=== PATIENT | male | born 1950 | race Caucasian/White ===

== ENCOUNTER 2019-12-27 15:27 | Inpatient (IN) | payer BC, MEDICARE ==
[~2019-12-27] VITALS: Ht 167.6 cm; Wt 83.9 kg
[~2019-12-27 15:27] MED LIST: AUGMENTIN 875-1 EACH PO; DICYCLOMINE HCL10 MG; ONDANSETRO4 MG/UDTAB SL; PAROXETINE HCL20 MG PO; PROMETHAZINE HC25 M1 PO; PROTONIX20 MG PO; TYLENOL # 31 EA PO
[2019-12-27] MEDS ORDERED: PANTOPRAZOLE 40 MG 10ML VIAL IV STA (16:00)
[2019-12-27] MEDS ORDERED: SODIUM CHLORIDE 0.9% 1000ML 1,000 ML IV STA (16:00)
[2019-12-27] MEDS ORDERED: DIATRIZOATE MEGL/DIATRIZOA SOD 30 ML BTL PO ONE (16:15)
[2019-12-27 16:37] LABS: BASOPHILS % 0.2 % (0.0-1.0); EOSINOPHILS # (AUTO) 0.1 (0.0-0.4); EOSINOPHILS % 0.7 % (0.0-6.0); HEMATOCRIT 46.5 % (38.2-49.6); HEMOGLOBIN 16.4 g/dL (14.0-18.0); LYMPHOCYTES # (AUTO) 0.8 (1.0-3.2); LYMPHOCYTES % 5.6 % (18.0-39.1); MEAN CORPUSCULAR HEMOGLOBIN 31.6 pg (28-32); MEAN CORPUSCULAR HGB CONC 35.3 g/dL (31-35); MEAN CORPUSCULAR VOLUME 89.6 fL (81-99); MONOCYTES # (AUTO) 1.2 (0.2-0.8); MONOCYTES % 8.6 % (4.4-11.3); NEUTROPHILS # (AUTO) 11.9 (2.1-6.9); NEUTROPHILS % 84.3 % (38.7-80.0); PLATELET COUNT 401 x10e3/uL (140-360); RED BLOOD COUNT 5.19 x10e6/uL (4.3-5.7); RED CELL DISTRIBUTION WIDTH 12.8 % (11.7-14.4)
[2019-12-27 16:39] LABS: BILIRUBIN,URINE NEGATIVE (NEGATIVE); CLARITY,URINE SL CLOUDY (CLEAR); COLOR,URINE YELLOW (YELLOW); KETONES,URINE NEGATIVE (NEGATIVE); LEUKOCYTE ESTERASE ,URINE NEGATIVE (NEGATIVE); NITRITE,URINE NEGATIVE (NEGATIVE); PROTEIN,URINE DIPSTICK NEGATIVE (NEGATIVE); URINE UROBILINOGEN 0.2 mg/dL (0.2 - 1)
[2019-12-27 16:46] LABS: BACTERIA,URINE FEW /HPF; EPITHELIAL CELLS,URINE FEW /LPF
[2019-12-27 16:51] LABS: ALANINE AMINOTRANSFERASE 49 IU/L (0-55); ALBUMIN 3.6 g/dL (3.5-5.0); ALBUMIN/GLOBULIN RATIO 1.2 (0.8-2.0); ALKALINE PHOSPHATASE 82 IU/L (40-150); ANION GAP 14.3 mmol/L (8-16); BLOOD UREA NITROGEN 15 mg/dL (7-26); BUN/CREATININE RATIO 15 (6-25); CALCIUM 9.3 mg/dL (8.4-10.2); CARBON DIOXIDE 26 mmol/L (22-29); CHLORIDE 102 mmol/L (98-107); CREATININE, SERUM 0.99 mg/dL (0.72-1.25); EST GLOMERULAR FILTRATION RATE > 60 ML/MIN (60-); GLUCOSE 107 mg/dL (74-118); LIPASE 19 U/L (8-78); POTASSIUM 3.3 mmol/L (3.5-5.1); SODIUM 139 mmol/L (136-145)
[2019-12-27] MEDS ORDERED: ONDANSETRON HCL INJ 2MG/ML 2ML 2 MG/ML VIAL IV STA (16:55)
[2019-12-27] MEDS ORDERED: MORPHINE SULFATE INJ 4 MG/ML INJ 1ML IV ONE (17:00)
--- NOTE | 2019-12-27 17:45 | NUR ---
Patient placed in room, tele applied. 12 lead ekg performed, 1 liter NS bolus given, protonix, zofran and morphine IV. Patient had 1 episode of green emesis.
[2019-12-27] MEDS ORDERED: ROCURONIUM BROMIDE 10 MG/ML 5ML VIAL ONE (17:59)
[2019-12-27] MEDS ORDERED: LIDOCAINE HCL 2% JELLY 5 ML TUBE ONE (17:59)
[2019-12-27] MEDS ORDERED: PROPOFOL IV EMULSION 10 MG/ML 20 ML VIAL ONE (17:59)
[2019-12-27] MEDS ORDERED: ESMOLOL HCL 100MG/10ML 10 MG/ML VIAL ONE (17:59)
[2019-12-27] MEDS ORDERED: LIDOCAINE HCL 2% LOCAL INJ 5 ML SDV VIAL INJ ONE (17:59)
[2019-12-27] MEDS ORDERED: DEXAMETHASONE SOD PHOS INJ 4 MG/ML VIAL ONE (17:59)
[2019-12-27] MEDS ORDERED: ONDANSETRON HCL INJ 2MG/ML 2ML 2 MG/ML VIAL ONE (17:59)
--- NOTE | 2019-12-27 18:36 | NUR ---
Patient recieved CT scan.
[2019-12-27 18:58] LABS: INR 0.97; PROTHROMBIN TIME 13.5 seconds (11.9-14.5)
--- NOTE | 2019-12-27 18:58 | Diagnostic Imaging Report ---
EXAM: CT Abdomen and Pelvis WITH contrast INDICATION: ^abd pain ^20191227 ^1814 COMPARISON: None available. TECHNIQUE: Abdomen and pelvis were scanned utilizing a multidetector helical scanner from the lung base to the pubic symphysis after administration of IV contrast. Coronal and sagittal reformations were obtained. Dose modulation, iterative reconstruction, and/or weight based adjustment of the mA/kV was utilized to reduce the radiation dose to as low as reasonably achievable. Routine protocol was performed. Scan was performed when during portal venous phase. IV CONTRAST: 100 mL of Isovue-370 ORAL CONTRAST: Gastroview COMPLICATIONS: None RADIATION DOSE: Total DLP: 420.75 mGy*cm Estimated effective dose: (DLP x 0.015 x size factor) mSv CTDIvol has been reviewed. It is below the limits set by the Radiation Protocol Committee (RPC). FINDINGS: LINES and TUBES: None. LOWER THORAX: Bibasilar atelectasis/scarring. HEPATOBILIARY: Few scattered subcentimeter hypodensities are too small to characterize. No hepatic mass. No biliary ductal dilation. GALLBLADDER: Surgically absent. SPLEEN: No splenomegaly. PANCREAS: No focal masses or ductal dilatation. ADRENALS: No adrenal nodules KIDNEYS/URETERS: Kidneys enhance symmetrically. No hydronephrosis. No renal mass. Left renal inferior pole exophytic cyst. Multiple right renal calculi, the largest in the inferior pole measuring 0.6 cm. GI TRACT: Focal rectal wall thickening (series 2, image 79). Colonic diverticulosis without evidence of diverticulitis. Dilated small bowel loops throughout the abdomen with air-fluid levels. The terminal ileum is collapsed, demonstrating enlargement and hyperenhancement (series 2, image 36). Appendix is normal. Large hiatal hernia. PELVIC ORGANS/BLADDER: Unremarkable. LYMPH NODES: Enlarged right lower quadrant ileocolic lymph nodes measure 2.2 cm and 1.1 cm (series 2, image 34). Otherwise, no lymphadenopathy. VESSELS: Unremarkable. PERITONEUM / RETROPERITONEUM: No free air. Small amount of free fluid in right paracolic cutter. BONES: Degenerative changes of spine, most notable at L4-L5. SOFT TISSUES: Unremarkable. IMPRESSION: 1. Small bowel obstruction with transition point at terminal ileum. The enlarged terminal ileum is collapsed, demonstrating hyperenhancement. This could be related to infectious/inflammatory terminal ileitis. Underlying mass cannot be excluded. There are also adjacent enlarged lymph nodes as described above. 2. Colonic diverticulosis without evidence of diverticulitis. 3. Focal low rectal wall thickening, could be due to underdistention. Underlying lesion cannot be entirely excluded and correlation with colonoscopy is recommended. 4. Right renal subcentimeter nonobstructive calculi. Signed by: Dr. Ramone Olguin MD on 12/27/2019 6:55 PM
[2019-12-27 18:59] LABS: PARTIAL THROMBOPLASTIN TIME 30.3 seconds (23.8-35.5)
[2019-12-27] MEDS ORDERED: ONDANSETRON HCL INJ 2MG/ML 2ML 2 MG/ML VIAL IV NR (19:01)
[2019-12-27 19:11] LABS: CREATINE KINASE MB 4.5 ng/mL (0-5.0)
[2019-12-27] MEDS ORDERED: PROMETHAZINE HCL (IM) 25 MG/ML VIAL IV PRN (19:15)
[2019-12-27] MEDS ORDERED: BENZOCAINE/TETRACAINE/BUTAMBEN AERO SPRAY 56 GM CAN TOP ONE (19:15)
--- OUTSIDE RECORDS SUMMARY | 2019-12-27 19:31 | XMS REPORT ---
Author Author [facility] Address Unknown Phone Unavailable Care Team Providers Care Adult School Counselor Name Role Phone Edson IRVING Unavailable Unavailable Problems This patient has no known problems. Allergies, Adverse Reactions, Alerts This patient has no known allergies or adverse reactions. Medications This patient has no known medications. Results Test Description Test Time Test Comments Text Results Atomic Results Result Comments CT ABDOMEN/PELVIS W 2019-12-27 18:43:00 [place] [address] Patient Name: LAURA DUFFY MR #: [id number] : 1950 Age/Sex: 69/M Req #: [id number] Adm Physician: Ordered by: TIFFANY MENDEZ NP Report #: [id number] Location: ER Room/Bed: Procedure: [id number] CT/CT ABDOMEN/PELVIS W Exam Date: 12/27/19 Exam Time: 1814 REPORT STATUS: Signed EXAM: CT Abdomen and Pelvis WITH contrast INDICATION: abd pain [id number] COMPARISON: None available. TECHNIQUE: Abdomen and pelvis were scanned utilizing a multidetector helical scanner from the lung base to the pubic symphysis after administration of IV contrast. Coronal and sagittal reformations were obtained. Dose modulation, iterative reconstruction, and/or weight based adjustment of the mA/kV was utilized to reduce the radiation dose to as low as reasonably achievable. Routine protocol was performed. Scan was performed when during portal venous phase. IV CONTRAST: 100 mL of Isovue-370 ORAL CONTRAST: Gastroview COMPLICATIONS: None RADIATION DOSE: Total DLP: 420.75 mGy*cm Estimated effective dose: (DLP x 0.015 x size factor) mSv CTDIvol has been reviewed. It is below the limits set by the Radiation Protocol Committee (RPC). FINDINGS: LINES and TUBES: None. LOWER THORAX: Bibasilar atelectasis/scarring. HEPATOBILIARY: Few scattered subcentimeter hypodensities are too small to characterize. No hepatic mass. No biliary ductal dilation. GALLBLADDER: Surgically absent. SPLEEN: No splenomegaly. PANCREAS: No focal masses or ductal dilatation. ADRENALS: No adrenal nodules KIDNEYS/URETERS: Kidneys enhance symmetrically. No hydronephrosis. No renal mass. Left renal inferior pole exophytic cyst. Multiple right renal calculi, the largest in the inferior pole measuring 0.6 cm. GI TRACT: Focal rectal wall thickening (series 2, image 79). Colonic diverticulosis without evidence of d iverticulitis. Dilated small bowel loops throughout the abdomen with air- fluid levels. The terminal ileum is collapsed, demonstrating enlargement and hyperenhancement (series 2, image 36). Appendix is normal. Large hiatal hernia. PELVIC ORGANS/BLADDER: Unremarkable. LYMPH NODES: Enlarged right lower quadrant ileocolic lymph nodes measure 2.2 cm and 1.1 cm (series 2, image 34). Otherwise, no lymphadenopathy. VESSELS: Unremarkable. PERITONEUM / RETROPERITONEUM: No free air. Small amount of free fluid in right paracolic cutter. BONES: Degenerative changes of spine, most notable at L4- L5. SOFT TISSUES: Unremarkable. IMPRESSION: 1. Small bowel obstruction with transition point at terminal ileum. The enlarged terminal ileum is collapsed, demonstrating hyperenhancement. This could be related to infectious/inflammatory terminal ileitis. Underlying mass cannot be excluded. There are also adjacent enlarged lymph nodes as described above. 2. Colonic diverticulosis without evidence of diverticulitis. 3. Focal low rectal wall thickening, could be due to underdistention. Underlying lesion cannot be entirely excluded and correlation with colonoscopy is recommended. 4. Right renal subcentimeter nonobstructive calculi. Signed by: Dr. Ramone Yusuf MD on 12/27/2019 6:55 PM Dictated By: RAMONE YUSUF MD Electro nically Signed By: RAMONE YUSUF MD on 12/27/191854 Transcribed By: COLTEN on 12/27/191854 COPY TO: TIFFANY MENDEZ NP
[2019-12-27] MEDS ORDERED: PROMETHAZINE HCL (IM) 25 MG/ML VIAL IM PRN (19:45)
[2019-12-27] MEDS: SODIUM CHLORIDE 0.9% 250ML IRRIG IR SCH (19:45)
[2019-12-27] MEDS: PIPER-TAZ 3.375 GM / NS 50ML IV SCH (19:55)
[2019-12-27] MEDS: D5NS/KCL 20MEQ 1,000 ML IV SCH (21:54)
[2019-12-27] MEDS ORDERED: SODIUM CHLORIDE 0.9% 50ML 50 ML ONE (22:22)
[2019-12-27] MEDS ORDERED: IOPAMIDOL 370 MG/ML 200 ML INFUS..BTL INJ ONE (22:22)
--- NOTE | 2019-12-28 02:37 | History and Physical ---
CHIEF COMPLAINT: The patient is a 69-year-old gentleman, who comes in with abdominal pain. HISTORY OF PRESENTING ILLNESS: This is Mr. Fadi meneses, who presented to the clinic about 2 days ago with abdominal pain, nonspecific. The patient was asked to take a PPI and to follow up with me in about a week's time. The patient symptomatically got worse. The patient's abdominal pain got worse. The patient came to the ED, was found to have small bowel obstruction and ileitis and admitted for the same. PAST MEDICAL HISTORY: History of arthritis, history of reflux esophagitis, history of depression and history of IBS. MEDICATIONS: He takes at home are dicyclomine 10 mg pantoprazole 40 mg daily, paroxetine 20 mg daily, promethazine was also noted. The patient was getting Augmentin 875 mg twice a day. PAST SURGICAL HISTORY: History of basal cell carcinoma removed from the neck and forehead, tonsillectomy, and lithotripsy for kidney stones. The patient also has history of kidney stones. FAMILY HISTORY: Positive for mother with breast cancer. Otherwise noncontributory. REVIEW OF SYSTEMS: Negative for chest pain. Positive for some shortness of breath. Positive for nausea. No vomiting. No diarrhea. No constipation. Positive abdominal pain which is diffuse. No diplopia. No blurry vision. No headaches. ALLERGIES: NO KNOWN DRUG ALLERGIES. SOCIAL HISTORY: No EtOH. No IV drug abuse. No history of smoking. Former smoker. PHYSICAL EXAMINATION: VITAL SIGNS: Temperature is 96.4, pulse of 83, respirations of 18, blood pressure is 142/97, and pulse oximetry of 98%. HEENT: Normocephalic and atraumatic. The patient currently has an NG tube which is placed stents, a little diaphoretic firmness. CVS: S1 and S2 normal. Regular rate and rhythm. ABDOMEN: Distended. Bowel sounds are sluggish. EXTREMITIES: No clubbing, no cyanosis, no edema. LABORATORY VALUES: White count is 14,000, hemoglobin of 16.4, hematocrit 46.5, and platelet count of 401. Chemistry shows sodium 139, potassium 3.3, BUN 15, and creatinine 0.9, total bilirubin of 1.6, AST was 37. Coags were normal. IMAGING STUDIES: CT of the abdomen and pelvis small bowel obstruction with transition point to the terminal ileum. Colonic diverticulosis, focal rectal wall thickening and right renal subcentimeter nonobstructing calculi. ASSESSMENT: Mr. Fadi Meneses with. 1. Ileitis. 2. Small bowel obstruction. 3. Leukocytosis. 4. History of depression. PLAN: The patient has an NG tube. A consult with has been done. The patient has been started on Zosyn IV q.6 hours. Monitor his lytes. Monitor his kidney function and continue monitoring his LFTs and bilirubin. Further recommendation per clinical course. We discussed this with the family. We will continue and keep him n.p.o. at this time and follow up with labs in the morning. Further recommendation per clinical course. MD PARISH Chin/MODL /[id number]
[2019-12-28 03:19] LABS: CREATINE KINASE MB 3.7 ng/mL (0-5.0)
[2019-12-28 07:11] LABS: BASOPHILS % 0.1 % (0.0-1.0); EOSINOPHILS # (AUTO) 0.1 (0.0-0.4); EOSINOPHILS % 0.4 % (0.0-6.0); HEMATOCRIT 42.8 % (38.2-49.6); HEMOGLOBIN 14.6 g/dL (14.0-18.0); LYMPHOCYTES # (AUTO) 0.8 (1.0-3.2); LYMPHOCYTES % 5.6 % (18.0-39.1); MEAN CORPUSCULAR HEMOGLOBIN 31.4 pg (28-32); MEAN CORPUSCULAR HGB CONC 34.1 g/dL (31-35); MONOCYTES # (AUTO) 1.1 (0.2-0.8); MONOCYTES % 8.3 % (4.4-11.3); NEUTROPHILS # (AUTO) 11.6 (2.1-6.9); NEUTROPHILS % 85.2 % (38.7-80.0); PLATELET COUNT 353 x10e3/uL (140-360); RED BLOOD COUNT 4.65 x10e6/uL (4.3-5.7); RED CELL DISTRIBUTION WIDTH 13.1 % (11.7-14.4)
--- NOTE | 2019-12-28 07:13 | Progress Note ---
DATE: 12/28/2019 SUBJECTIVE: The patient came in with small bowel obstruction. NG tube to suction applied. The patient is feeling better. Decompression of the abdomen noted no complaints. The pain had initiated about 3 o'clock, given morphine, feeling better. No chest pain, no shortness of breath, and no bowel movements. PHYSICAL EXAMINATION: VITAL SIGNS: Temperature is afebrile, pulse of 98, respirations of 20, blood pressure is 121/88, pulse oximetry of 97%. HEENT: Normocephalic. The patient has an NG tube in. CVS: S1 and S2 normal, regular rhythm. LUNGS: Clear to auscultation. ABDOMEN: Slightly distended. Bowel sounds are very sluggish. EXTREMITIES: No clubbing, no cyanosis, no edema. LABORATORY VALUES: Pending. Chemistries pending. Troponins are negative. Lipase is 19. Coags are normal. IMAGING STUDIES: CT shows small bowel obstruction. ASSESSMENT: A 69-year-old gentleman with: 1. Small-bowel obstruction. 2. Leukocytosis. 3. Depression. 4. Ileitis. PLAN: Continue on Zosyn. is on consult. Continue monitoring his abdomen and bilirubin. Lytes to be replaced as needed. IV fluid resuscitation. Further recommendation per clinical course. We will continue to monitor the patient along with . MD PARISH Chin/MODL /[id number]
[2019-12-28 07:37] LABS: ALANINE AMINOTRANSFERASE 47 IU/L (0-55); ALBUMIN 3.2 g/dL (3.5-5.0); ALBUMIN/GLOBULIN RATIO 1.2 (0.8-2.0); ALKALINE PHOSPHATASE 75 IU/L (40-150); ANION GAP 12.7 mmol/L (8-16); BLOOD UREA NITROGEN 11 mg/dL (7-26); BUN/CREATININE RATIO 13 (6-25); CALCIUM 8.6 mg/dL (8.4-10.2); CARBON DIOXIDE 24 mmol/L (22-29); CHLORIDE 107 mmol/L (98-107); CREATININE, SERUM 0.82 mg/dL (0.72-1.25); EST GLOMERULAR FILTRATION RATE > 60 ML/MIN (60-); GLUCOSE 117 mg/dL (74-118); LIPASE 11 U/L (8-78); POTASSIUM 3.7 mmol/L (3.5-5.1); SODIUM 140 mmol/L (136-145)
[2019-12-28] MEDS: SODIUM CHLORIDE 0.9% 250ML IRRIG IR SCH ×7 (07:55→23:05)
[2019-12-28] MEDS: PIPER-TAZ 3.375 GM / NS 50ML IV SCH ×3 (07:55→14:34)
[2019-12-28 08:47] LABS: CREATINE KINASE MB 2.1 ng/mL (0-5.0)
[2019-12-28] MEDS: D5NS/KCL 20MEQ 1,000 ML IV SCH (09:13)
[2019-12-28] MEDS: MORPHINE SULFATE INJ 4 MG/ML INJ 1ML IV PRN ×3 (11:47→21:15)
[2019-12-28] MEDS: ONDANSETRON HCL INJ 2MG/ML 2ML 2 MG/ML VIAL IV PRN ×3 (11:48→21:10)
[2019-12-28] MEDS: SODIUM CHLORIDE 0.9% 1000ML 1,000 ML IV SCH ×2 (12:39→21:04)
[2019-12-28] MEDS: PANTOPRAZOLE 40 MG 10ML VIAL IV SCH (13:25)
[2019-12-28] MEDS: CEFTRIAXONE SOD 1 GM/NS 50 ML 50 ML IV SCH (13:25)
--- NOTE | 2019-12-28 19:30 | NUR ---
PATIENT WAS BROUGHT FROM ER IN A STRETCHER WITH C/O ABD.PAIN.ASSESSMENT DONE.AAOX3.AMBULATORY.NO RESP.DISTRESS .ABD.PAIN VOICED 06/25.IV TO LEFT AC #20 G PATENT.IV FLUID RUNNING.NG TUBE IN PLACE.ORIENTED TO THE UNIT.BED LOCKED AND IN LOWEST POSITION. PHONE AND CALL LIGHT WITHIN REACH.INSTRUCTED TO CALL FOR ASSISTANCE NEEDED.
[2019-12-28 19:31] VITALS: BP 100/57
[2019-12-28 20:10] VITALS: BP 100/57
[2019-12-28 21:00] VITALS: BP 100/57
[2019-12-28] MEDS: PIPER-TAZ 3.375 GM 50 ML IV SCH (21:03)
[2019-12-28] MEDS ORDERED: ACETAMINOPHEN 1000 MG/100 ML IV PRN (21:45)
--- NOTE | 2019-12-28 22:00 | NUR ---
TEMP NOTED 99.8.NOTIFIED TO .RECEIVED NEW ORDERS.
[2019-12-29] VITALS (8 sets, daily range): BP systolic 92–123; BP diastolic 56–83
[2019-12-29] MEDS: ONDANSETRON HCL INJ 2MG/ML 2ML 2 MG/ML VIAL IV PRN ×2 (02:30→06:30)
[2019-12-29] MEDS: MORPHINE SULFATE INJ 4 MG/ML INJ 1ML IV PRN ×4 (02:35→17:22)
[2019-12-29] MEDS: PIPER-TAZ 3.375 GM 50 ML IV SCH ×4 (02:46→21:00)
[2019-12-29] MEDS: SODIUM CHLORIDE 0.9% 250ML IRRIG IR SCH ×6 (03:02→23:15)
[2019-12-29] MEDS: SODIUM CHLORIDE 0.9% 1000ML 1,000 ML IV SCH ×3 (05:25→20:00)
--- NOTE | 2019-12-29 06:00 | NUR ---
PATIENT IS OFF THE UNIT FOR X RAY.
--- NOTE | 2019-12-29 06:10 | NUR ---
PATIENT CAME BACK SAFELY AFTER THE X RAY.
[2019-12-29 06:29] LABS: BASOPHILS % 0.3 % (0.0-1.0); EOSINOPHILS # (AUTO) 0.2 (0.0-0.4); EOSINOPHILS % 1.3 % (0.0-6.0); HEMATOCRIT 42.3 % (38.2-49.6); HEMOGLOBIN 13.9 g/dL (14.0-18.0); LYMPHOCYTES # (AUTO) 1.1 (1.0-3.2); LYMPHOCYTES % 9.4 % (18.0-39.1); MEAN CORPUSCULAR HGB CONC 32.9 g/dL (31-35); MEAN CORPUSCULAR VOLUME 94.4 fL (81-99); MONOCYTES # (AUTO) 1.2 (0.2-0.8); MONOCYTES % 10.5 % (4.4-11.3); NEUTROPHILS # (AUTO) 8.8 (2.1-6.9); NEUTROPHILS % 78.1 % (38.7-80.0); PLATELET COUNT 312 x10e3/uL (140-360); RED BLOOD COUNT 4.48 x10e6/uL (4.3-5.7); RED CELL DISTRIBUTION WIDTH 13.4 % (11.7-14.4)
--- NOTE | 2019-12-29 06:47 | Diagnostic Imaging Report ---
EXAM: Chest x-ray 1 view and Abdomen x-ray 1 View) INDICATION: Small bowel obstruction COMPARISON: Abdominal CT 12/27/2019 FINDINGS: LINES/TUBES: Enteric tube tip courses into and coils within the the large sliding gastric hiatal hernia above the level of the hemidiaphragm. LUNGS/PLEURA: Left basilar haziness. CARDIOMEDIASTINUM: Unremarkable. ABDOMEN: Normal volume of stool in the colon. Persistent dilation of numerous small bowel loops with air-fluid levels. No abnormal abdominal calcifications. No abnormal soft tissue masses. No pneumoperitoneum. Cholecystectomy clips. BONES: No acute osseous abnormality. Mild degenerative changes in the shoulders, spine and pelvis. SOFT TISSUES: No gross abnormalities. IMPRESSION: 1. Enteric tube tip courses into and coils within the the large sliding gastric hiatal hernia above the level of the hemidiaphragm. 2. Left basilar haziness is either could be due to atelectasis and/or pneumonia/aspiration. Signed by: Jerod Garber DO on 12/29/2019 6:45 AM
[2019-12-29 06:51] LABS: ALANINE AMINOTRANSFERASE 29 IU/L (0-55); ALBUMIN/GLOBULIN RATIO 1.2 (0.8-2.0); ALKALINE PHOSPHATASE 69 IU/L (40-150); BLOOD UREA NITROGEN 13 mg/dL (7-26); BUN/CREATININE RATIO 13 (6-25); CALCIUM 8.5 mg/dL (8.4-10.2); CARBON DIOXIDE 25 mmol/L (22-29); CHLORIDE 108 mmol/L (98-107); EST GLOMERULAR FILTRATION RATE > 60 ML/MIN (60-); GLUCOSE 92 mg/dL (74-118); MAGNESIUM 1.6 MG/DL (1.3-2.1); SODIUM 143 mmol/L (136-145)
--- NOTE | 2019-12-29 06:55 | NUR ---
BED SIDE SHIFT REPORT GIVEN TO ONCOMING RN.STABLE CONDITION.
--- NOTE | 2019-12-29 07:00 | NUR ---
RECEIVED PATIENT AWAKE RESTING IN BED NO S/S OF DISTRESS. BED LOW, WHEELS LOCKED, SIDE RAILS X2, CALL LIGHT WITHIN REACH WILL CONTINUE TO MONITOR PATIENT.
[2019-12-29] MEDS: PANTOPRAZOLE 40 MG 10ML VIAL IV SCH (08:58)
[2019-12-29] MEDS: CEFTRIAXONE SOD 1 GM/NS 50 ML 50 ML IV SCH (12:12)
--- NOTE | 2019-12-29 17:17 | Progress Note ---
DATE: 12/29/2019 SUBJECTIVE: A 69-year-old male who comes in with small bowel obstruction and ileitis currently on n.p.o. NG tube to suction, feeling better. Abdominal pain is decreased . OBJECTIVE: VITAL SIGNS: Temperature is 99.5. Afebrile, although the last temperature was 95-100, respirations of 18, blood pressure . HEENT: Normocephalic and atraumatic. Pupils are reactive to light and accommodation. NG tube in place to suction. CVS: S1 and S2. Normal rate and rhythm. ABDOMEN: Distended. Bowel sounds very sluggish. EXTREMITIES: No clubbing, no cyanosis, no edema. LABORATORY VALUES: White count is trended down to 11.3, hemoglobin 13.9, hematocrit of 42.3. Chemistries; sodium is potassium 4.0, BUN 13, creatinine 1.02, bilirubin 123. Troponins were trended to be negative. Liver enzymes are normal. IMAGING STUDIES: Abdominal series shows large sliding hiatal hernia, left basilar haziness . Persistent dilatation of numerous loop with air-fluid level. ASSESSMENT: Small bowel obstruction. PLAN: Continue with NG tube, n.p.o., fluid resuscitation, electrolyte replacement as needed. Further recommendation per clinical course. antibiotics. Vaibhav Bernal MD ASJ/MODL /[id number]
[2019-12-30] VITALS (8 sets, daily range): BP systolic 92–124; BP diastolic 55–77
[2019-12-30] MEDS: PIPER-TAZ 3.375 GM 50 ML IV SCH ×4 (02:52→21:11)
[2019-12-30] MEDS: SODIUM CHLORIDE 0.9% 250ML IRRIG IR SCH ×5 (03:15→21:11)
[2019-12-30] MEDS: SODIUM CHLORIDE 0.9% 1000ML 1,000 ML IV SCH ×3 (04:00→21:11)
--- NOTE | 2019-12-30 07:00 | NUR ---
BEDSIDE SHIFT REPORT RECEIVED FROM THE PET NUTRITION SPECIALIST RN. EDUCATED PT ABOUT FALL PRECAUTIONS. PT VERBALIZED UNDERSTANDING. CALL LIGHT WITH IN EASY REACH. FAMILY MEMBER AT BEDSIDE. SIDE RAILS X2. PT DENIES NEEDS AT THIS TIME.
--- NOTE | 2019-12-30 08:00 | NUR ---
LAC 20 G IV REMOVED DUE TO LEAKING. TIP INTACT. DRESSING APPLIED. PT DENIED FURTHER NEEDS.
[2019-12-30] MEDS: PANTOPRAZOLE 40 MG 10ML VIAL IV SCH (08:46)
--- NOTE | 2019-12-30 08:46 | Diagnostic Imaging Report ---
Exam: Abdominal film Clinical History: Small bowel obstruction Comparison: Acute abdominal series 12/29/2019 DISCUSSION: Chest: The lungs are well-inflated. Patchy opacity in the lung bases left greater than right compatible with subsegmental atelectasis. No pleural effusion or pneumothorax. Large sliding hiatal hernia with enteric tube coiled within, unchanged. Otherwise normal cardiomediastinal contour. No overt pulmonary edema. Abdomen: As before, multiple distended, air-filled loops of small bowel to a maximum of approximately 4 cm in caliber with multiple air-fluid levels on the upright radiograph. There has been interval passage of some orally ingested contrast material into the colon relative to the CT performed 12/27/2019. No niko pneumoperitoneum. Regional skeletal structures are intact. IMPRESSION: No acute cardiopulmonary abnormality. Persistent left basilar airspace disease which may reflect atelectasis or aspiration pneumonitis. Stable position of enteric tube, coiled within a large sliding hiatal hernia. Stable findings suggestive of high-grade small bowel obstruction, though there has been interval passage of enteric contrast material into the colon. No pneumoperitoneum. Signed by: Dr. Olaf Elliott M.D. on 12/30/2019 8:43 AM
[2019-12-30] MEDS: CEFTRIAXONE SOD 1 GM/NS 50 ML 50 ML IV SCH (12:03)
--- NOTE | 2019-12-30 14:50 | NUR ---
CNO AND CHARGE NURSE SPOKE WITH PT AND ABOUT CONCERNS OF MEDICATION. ALL QUESTIONS ANSWERED. NO PAIN AT PRESENT.
[2019-12-30] MEDS: ONDANSETRON HCL INJ 2MG/ML 2ML 2 MG/ML VIAL IV PRN (17:14)
[2019-12-30] MEDS: MORPHINE SULFATE INJ 4 MG/ML INJ 1ML IV PRN (17:14)
--- NOTE | 2019-12-30 19:00 | NUR ---
BEDSIDE SHIFT REPORT GIVEN TO THE PIPE CHIPPER RN. PT DENIED FURTHER NEEDS.
--- NOTE | 2019-12-30 19:06 | NUR ---
Received bedside report from day nurse. Patient resting in bed, no s/s of distress. All safety measures in place. Will continue to monitor.
[2019-12-30] MEDS: BISACODYL 10 MG SUPP PR SCH (21:11)
--- NOTE | 2019-12-30 21:31 | Progress Note ---
DATE: 12/30/2019 SUBJECTIVE: The patient is here for small bowel obstruction, currently on NG tube, wanting water. Had a small bowel movement this morning. No chest pain. No shortness of breath. No nausea, no vomiting. The patient is pain-free at this time. OBJECTIVE: VITAL SIGNS: Temperature 97.9, T-max is 99.1 at 8:13 yesterday, pulse of 96, respirations of 18, blood pressure is 124/77, and pulse oximetry of 94%. HEENT: Normocephalic and atraumatic. Pupils are reactive to light and accommodation. CVS: S1 and S2 normal. Regular rate and rhythm. ABDOMEN: Distended. Bowel sounds are very sluggish. EXTREMITIES: No clubbing, no cyanosis, no edema. LABORATORY VALUES: White count 11,000 yesterday, hemoglobin of 13.9, and hematocrit of 42.3. Chemistries within normal limits. Total bilirubin is 1.3. IMAGING: Imaging studies done this morning shows no change in high-grade small bowel obstruction. PLAN: Continue with NG tube, n.p.o., fluid resuscitation. The patient has been given a suppository. We will continue to monitor the patient. Surgery consult is on board. Further recommendation per clinical course. We will continue the same treatment. The patient has been educated about his condition. MD SOPHIA ChinJ/MODL /[id number]
[2019-12-31] VITALS (7 sets, daily range): BP systolic 104–124; BP diastolic 64–78
[2019-12-31] MEDS: SODIUM CHLORIDE 0.9% 250ML IRRIG IR SCH ×4 (00:03→11:01)
[2019-12-31] MEDS: PIPER-TAZ 3.375 GM 50 ML IV SCH ×4 (02:57→21:20)
[2019-12-31] MEDS: SODIUM CHLORIDE 0.9% 1000ML 1,000 ML IV SCH (05:19)
--- NOTE | 2019-12-31 06:32 | NUR ---
Patient leaving unit via wheelchair for acute abdomen series. In stable condition. Will continue to monitor upon return.
--- NOTE | 2019-12-31 07:00 | NUR ---
BEDSIDE SHIFT REPORT RECEIVED FROM THE EXIT BOOTH AGENT RN. EDUCATED PT ABOUT FALL PRECAUTIONS. PT VERBALIZED UNDERSTANDING. CALL LIGHT WITH IN EASY REACH. BED IS LOW AND LOCKED. SIDE RAILS X2. PT DENIES NEEDS AT THIS TIME.
--- NOTE | 2019-12-31 07:18 | NUR ---
Bedside report given to day nurse. Patient resting in bed, no s/s of distress. All safety measures in place.
[2019-12-31 07:40] LABS: BASOPHILS % 0.5 % (0.0-1.0); EOSINOPHILS # (AUTO) 0.2 (0.0-0.4); EOSINOPHILS % 2.8 % (0.0-6.0); HEMATOCRIT 40.2 % (38.2-49.6); HEMOGLOBIN 13.4 g/dL (14.0-18.0); LYMPHOCYTES # (AUTO) 0.9 (1.0-3.2); LYMPHOCYTES % 11.2 % (18.0-39.1); MEAN CORPUSCULAR HEMOGLOBIN 30.8 pg (28-32); MEAN CORPUSCULAR HGB CONC 33.3 g/dL (31-35); MEAN CORPUSCULAR VOLUME 92.4 fL (81-99); MONOCYTES # (AUTO) 0.7 (0.2-0.8); MONOCYTES % 8.4 % (4.4-11.3); NEUTROPHILS # (AUTO) 6.3 (2.1-6.9); NEUTROPHILS % 76.5 % (38.7-80.0); PLATELET COUNT 302 x10e3/uL (140-360); RED BLOOD COUNT 4.35 x10e6/uL (4.3-5.7); RED CELL DISTRIBUTION WIDTH 12.8 % (11.7-14.4)
--- NOTE | 2019-12-31 07:46 | Diagnostic Imaging Report ---
Exam: Abdominal film with upright chest Clinical History: Small bowel obstruction Comparison: 12/29/2019 DISCUSSION: See impression IMPRESSION: Enteric tube is unchanged in position, with the tip coiled over the lower chest, presumably within a large hiatal hernia previously seen. Unchanged gaseous distention of multiple small bowel loops predominantly within the right mid abdomen, up to 4 cm in caliber reflective of ongoing small bowel obstruction. Enteric contrast is again noted partially opacifying the colon. No pneumoperitoneum. Lungs are well-inflated and with minimal left lower lobe airspace disease, likely atelectasis. Signed by: Dr. Olaf Elliott M.D. on 12/31/2019 7:43 AM
[2019-12-31 08:00] LABS: ANION GAP 16.7 mmol/L (8-16); BLOOD UREA NITROGEN 9 mg/dL (7-26); BUN/CREATININE RATIO 11 (6-25); CALCIUM 8.3 mg/dL (8.4-10.2); CARBON DIOXIDE 19 mmol/L (22-29); CHLORIDE 110 mmol/L (98-107); EST GLOMERULAR FILTRATION RATE > 60 ML/MIN (60-); GLUCOSE 76 mg/dL (74-118); POTASSIUM 3.7 mmol/L (3.5-5.1); SODIUM 142 mmol/L (136-145)
--- NOTE | 2019-12-31 08:00 | NUR ---
PAGED FR. Vinny SAMUEL REGARDING ABDOMEN ACUTE SERIES REPORT. WAITING FOR THE CALL BACK FROM THE
--- NOTE | 2019-12-31 08:00 | NUR ---
PT REFUSED YELLOW SOCKS.
--- NOTE | 2019-12-31 08:10 | NUR ---
CALL BACK RECEIVED FROM THE UPDATED THE ACUTE ABDOMEN SERIES RESULT. NO NEW ORDERS RECEIVED.
[2019-12-31] MEDS: PANTOPRAZOLE 40 MG 10ML VIAL IV SCH (08:44)
[2019-12-31] MEDS: BISACODYL 10 MG SUPP PR SCH (08:44)
--- NOTE | 2019-12-31 11:45 | NUR ---
PT BLOOD SUGAR CHECKED SINCE PT ATE FEW DAYS AGO. [address] PHOENIX AND INFORMED THE SAME. NEW ORDER RECEIVED FOR D5NS 125 ML/HR SCHEDULED.
[2019-12-31] MEDS ORDERED: DEXTROSE 5%/0.9% SOD CHL 1,000 ML IV SCH (12:00)
--- NOTE | 2019-12-31 12:58 | NUR ---
Nutrition Intervention Note RD Recommendation(s) for Physician: Pt may benefit from parenteral nutrition if Pt is to continue to remain NPO greater than 5-7 days Plan of Care: RD following, monitoring for tolerance and adequacy Nutrition reason for involvement: NPO x 4 days as of 12/31/2019 RD Assessment Initial encounter with patient. Diet Hx: pt has no known food allergies. Pt denies any N,V,D. Small BM this morning. Pt has missing teeth and wears partials. The RD did discuss the possibility of PN if pt needed to be NPO greater than 7 days. NPO to continue with NGT to suction. Pt only has IV access at this time. Principal Problems/Diagnoses: SBO PMH: GERD GI: NGT to suction. output noted. Skin: intact Skin Labs: 12/31/2019) biochemical data reviewed Meds: (12/31/2019) NS@125ml/hr Ht:66 in. Wt:178lbs BMI:28.7kg/M2 IBW:142lbs Malnutrition Evaluation (12/04/19) The patient does not meet criteria for a specified degree of malnutrition at this time. Will re-evaluate at follow-up as appropriate. Nutrition Prescription (Diet Order): NPO Estimated Nutritional Needs: 2022 calories/day (25 kcal/kg/ BW) 81g protein/day ( 1g pro/kg/BW) Diet Education Needs Assessment: Diet education not indicated.. Nutrition Care Level:High Nutrition Diagnosis: Altered GI function related to decreased gastric motility as evidenced by SBO Goal: Patient will meet 75-100% of estimated needs by follow up Progress: Not Progressing Interventions: Composition, Rate, Route, IVF, Prescription medications Monitoring/Evaluation: Total energy intake, Total protein intake, Formula/Solution, IVF, Prescription medication, Weight change. Signed: Dieudonne Escalante RD, LD, [facility]
--- NOTE | 2019-12-31 13:30 | NUR ---
REMOVED NG TUBE PER THE ORDER BY DR. Miller SAMUEL. PT TOLERATED WELL. PT DENIED FURTHER NEEDS.
--- NOTE | 2019-12-31 18:45 | NUR ---
PT IS ON CLEAR LIQUID DIET AND TOLERATED WELL. REPORTED THE SAME TO DR. PHOENIX. D/C IV FLUIDS PER DR. PHOENIX.
--- NOTE | 2019-12-31 18:53 | NUR ---
Received bedside report from day nurse. Patient awake and sitting up in bed, no s/s of distress or c/o pain at this time. All safety measures in place. Will continue to monitor.
--- NOTE | 2019-12-31 19:00 | NUR ---
BEDSIDE SHIFT REPORT GIVEN TO THE CARDBOARD CUTTER RN. PT DENIED FURTHER NEEDS.
[2019-12-31] MEDS ORDERED: SODIUM CHLORIDE 0.9% 250ML 250 ML ONE (20:49)
[2020-01-01] VITALS (7 sets, daily range): BP systolic 106–133; BP diastolic 67–89
[2020-01-01] MEDS: PIPER-TAZ 3.375 GM 50 ML IV SCH ×4 (03:04→21:44)
--- NOTE | 2020-01-01 06:11 | NUR ---
Patient leaving unit via wheelchair for acute abdomen series. In stable condition.
--- NOTE | 2020-01-01 06:26 | Progress Note ---
DATE: 01/01/2020 SUBJECTIVE: The patient did well overnight. He had his NG-tube removed, voices no new complaints. He has not had any bowel movements overnight or passing of gas, but he does not feel any further distention. OBJECTIVE: VITAL SIGNS: Temperature 98.2, pulse 76, blood pressure 106/67, sats 98% on room air. GENERAL: No apparent distress, lying in bed. CARDIOVASCULAR: Regular rate and rhythm. LUNGS: Clear to auscultation bilaterally. ABDOMEN: Good bowel sounds. No distention. No peritoneal signs. Nontender. EXTREMITIES: No clubbing or cyanosis. NEUROLOGIC: Nonfocal. ASSESSMENT AND PLAN: 1. Small bowel obstruction. Continue with current conservative therapy. Surgery is following the patient. We will repeat his x-rays this morning. 2. Gastroesophageal reflux disease. Continue with his proton pump inhibitor. 3. Abdominal pain. Continue with pain control as needed. Please see hospital chart for full details. MD VERA Valdez/EMORY /[id number]
--- NOTE | 2020-01-01 06:39 | NUR ---
Patient returned to unit in stable condition. Will continue to monitor.
--- NOTE | 2020-01-01 07:02 | NUR ---
Bedside report given to day nurse. Patient resting in bed, no s/s of distress or c/o pain at this time. All safety measures in place.
--- NOTE | 2020-01-01 08:11 | Diagnostic Imaging Report ---
EXAM: Acute abdominal series with 5 views INDICATION: Small bowel obstruction. COMPARISON: 12/31/2019. FINDINGS: LINES/TUBES: Enteric tube has been removed. LUNGS/PLEURA: Left basilar haziness. CARDIOMEDIASTINUM: Unremarkable. ABDOMEN: No interval change in degree of dilation of numerous small bowel loops with multiple air-fluid levels. No abnormal abdominal calcifications. No abnormal soft tissue masses. No pneumoperitoneum. Cholecystectomy clips. BONES: No acute osseous abnormality. Mild degenerative changes in the shoulders, spine and pelvis. SOFT TISSUES: No gross abnormalities. CARDIOMEDIASTINAL: Normal size. Tortuous distal descending aorta. LUNGS and PLEURA: Bibasilar subsegmental atelectasis. No pneumothorax. IMPRESSION: Interval removal of nasogastric tube. No significant interval change in obstructive bowel gas pattern. Signed by: Dr. Per Bunn M.D. on 01/01/2020 8:09 AM
[2020-01-01] MEDS: PANTOPRAZOLE 40 MG 10ML VIAL IV SCH (10:14)
--- NOTE | 2020-01-01 19:15 | NUR ---
Received bedside report from day nurse. Patient resting in bed, no s/s of distress or c/o pain at this time. All safety measures in place. Will continue to monitor.
[2020-01-02] VITALS (8 sets, daily range): BP systolic 104–134; BP diastolic 62–88
[2020-01-02] MEDS: PIPER-TAZ 3.375 GM 50 ML IV SCH ×4 (02:40→21:50)
--- NOTE | 2020-01-02 07:03 | NUR ---
Bedside report given to day nurse. Patient resting in bed, no s/s of distress or c/o pain at this time. All safety measures in place.
--- NOTE | 2020-01-02 07:05 | NUR ---
Received patient lying in bed with eyes open. Respiration even and unlabored without SOB. Call light in reach.
--- NOTE | 2020-01-02 07:14 | Progress Note ---
DATE: 01/02/2020 SUBJECTIVE: The patient is a 69-year-old gentleman with history of small bowel obstruction. NG tube was taken out. The patient is tolerating a clear liquid diet, currently scheduled for CT of the abdomen and pelvis today. No chest pain. No shortness of breath. Feeling better. No fever noted. OBJECTIVE: VITAL SIGNS: Temperature is 97.2, respirations of 18, pulse of 62, blood pressure is 110/63, pulse oximetry of 98%. HEENT: Normocephalic and atraumatic. Pupils are reactive to light and accommodation. CVS: S1 and S2 are normal. Regular rate and rhythm. ABDOMEN: Nontender, nondistended, soft. Bowel sounds are positive. EXTREMITIES: No clubbing, no cyanosis, no edema. LABORATORY VALUES: None done. From the , all labs were within normal limits. Creatinine was good. ASSESSMENT: A 69-year-old gentleman with: 1. Small bowel obstruction. Continue with clear liquid diet. CT scan in the morning today. 2. Gastroesophageal reflux. 3. Abdominal pain. 4. Hypertension. PLAN: Continue to monitor the patient and further course depending on CT of the abdomen. We will continue with a clear liquid diet as of now. MD PARISH Chin/EMORY /[id number]
[2020-01-02] MEDS ORDERED: DIATRIZOATE MEGL/DIATRIZOA SOD 30 ML BTL PO ONE (07:57)
[2020-01-02] MEDS: PANTOPRAZOLE 40 MG 10ML VIAL IV SCH (09:31)
--- NOTE | 2020-01-02 09:41 | NUR ---
fur dressing supervisor, Tia strated PIV 20g at left FA. No bleeding noted.
--- NOTE | 2020-01-02 10:37 | NUR ---
Patient is transported for CT at this time.
--- NOTE | 2020-01-02 11:09 | NUR ---
Patient is transported back to room from CT.
--- NOTE | 2020-01-02 11:30 | Diagnostic Imaging Report ---
EXAMINATION: CT of the abdomen and pelvis with contrast. TECHNIQUE: Spiral CT images of the abdomen and pelvis were performed from the lung bases to the lesser trochanters after the intravenous administration of 100 cc of Isovue 370. Coronal and sagittal reformatted images were obtained. COMPARISON: 12/27/2019 CLINICAL HISTORY:Small bowel obstruction DISCUSSION: ABDOMEN/PELVIS: LOWER THORAX:Large hiatal hernia unchanged. Trace right pleural effusion. Bibasilar atelectasis. HEPATOBILIARY: Subcentimeter hypoattenuating foci in the left lobe are unchanged and remain too small to further characterize though likely to represent small cysts. No additional focal hepatic lesion. No intra-or extrahepatic biliary ductal dilation. Gallbladder is absent. SPLEEN: No splenomegaly or focal splenic lesion. PANCREAS: No focal masses or ductal dilatation. ADRENALS: No adrenal nodules. KIDNEYS/URETERS: Exophytic cyst projecting from the left kidney unchanged. No additional focal renal lesion. No hydronephrosis. Nonobstructing calculi in the right lower pole collecting system are unchanged. PELVIC ORGANS/BLADDER: The urinary bladder is unremarkable. PERITONEUM/RETROPERITONEUM: Trace right lower quadrant ascites. No pneumoperitoneum. LYMPH NODES: Enlarged right lower quadrant mesenteric lymph nodes to a maximum of 1 cm short axis are unchanged. Enlarged lymph node posterior to the mesenteric root adjacent to the SMA (series 2 image 34), is also unchanged. No retroperitoneal or pelvic sidewall lymphadenopathy. VESSELS: Abdominal aorta, major branch vessels, and iliac arterial systems are patent. Right hepatic artery is replaced to the SMA. Portal vein, splenic vein, and central superior mesenteric vein are patent. GI TRACT: The large bowel is notable for innumerable diverticula along the descending and sigmoid colon without wall thickening or adjacent inflammatory change. There has been no appreciable interval change in the appearance of multiple dilated loops of small bowel to a maximum caliber of 3.5 cm, with a transition point at the terminal ileum with a questionable mass lesion seen on series 2 image 36. BONES AND SOFT TISSUE: Bone island in the right femoral neck. Degenerative changes of the hips. Multilevel degenerative disc changes of the lumbar spine. No focal soft tissue abnormalities. No focal soft tissue abnormalities. IMPRESSION: Persistent findings of small bowel obstruction with a transition point at the terminal ileum. Endoluminal mass lesion is suspected based on persistence of findings and adjacent mesenteric lymphadenopathy. The suspected lesion is in close proximity (approximately 3 cm) to the ileocecal valve. No evidence of perforation. No drainable fluid collection. Additional findings include a large hiatal hernia, sigmoid diverticulosis without findings of diverticulitis, and nonobstructing right renal calculi, all of which are unchanged compared to prior examination. Signed by: Dr. Olaf Elliott M.D. on 01/02/2020 11:28 AM
--- NOTE | 2020-01-02 13:11 | NUR ---
Nutrition Intervention Note RD Recommendation(s) for Physician: -If pts diet does not advance in the next 24 hours, please consider alternate source of nutrition and consult RD, pt has been NPO/clear liquids for the past 6 days. -ADAT to GI soft per MD. Plan of Care: RD following, monitoring for tolerance and adequacy. Pt denied ONS. Nutrition reason for involvement: f/u RD Assessment 01/02: Follow up: Pt was seen resting in bed, clear liquid tray at bedside, NG tube taken out. The pt reported he has been tolerating the clear liquids, no N/V and he had a BM. Pt reported he is supposed to be advanced to a full liquid diet today, pt has been NPO/clear liquids for 6 days now. Spoke with nurse, he is getting a CT of his abdomen today and after that the pt will hopefully be advanced. If diet is not advanced by tmrw, 01/[address] for TPN if appropriate. Pt does have an appetite. Per MD- he will continue to clear liquids for now. Will continue to monitor. Initial encounter with patient. Diet Hx: pt has no known food allergies. Pt denies any N,V,D. Small BM this morning. Pt has missing teeth and wears partials. The RD did discuss the possibility of PN if pt needed to be NPO greater than 7 days. NPO to continue with NGT to suction. Pt only has IV access at this time. Principal Problems/Diagnoses: SBO PMH: GERD GI: Abd: soft LBM: 12/31 Skin: intact Labs: 01/02: no new labs (12/31/2019) biochemical data reviewed Meds: abx, protonix, zofran Ht:66 in. Wt:178lbs BMI:28.7kg/M2 IBW:142lbs Malnutrition Evaluation (01/04/20) The patient does not meet criteria for a specified degree of malnutrition at this time. Will re-evaluate at follow-up as appropriate. Nutrition Prescription (Diet Order): clear liquids Estimated Nutritional Needs: 6066-9239 calories/day (18-22 kcal/kg/CBW) (80 kg) 81-120g protein/day ( 1-1.5g pro/kg/BW) Diet Education Needs Assessment: Diet education not indicated. Nutrition Care Level:High Nutrition Diagnosis: Altered GI function related to decreased gastric motility as evidenced by SBO Goal: Patient will meet 75-100% of estimated needs by follow up Progress: Progressing Interventions: Composition, Rate, Route, IVF, Prescription medications, modified diet (fiber) Monitoring/Evaluation: Total energy intake, Total protein intake, Formula/Solution, IVF, Prescription medication, Weight change, modified diet Signed: Rebecca Gutierrez RD, LD
[2020-01-02] MEDS ORDERED: SODIUM CHLORIDE 0.9% 50ML 50 ML ONE (14:55)
[2020-01-02] MEDS ORDERED: IOPAMIDOL 370 MG/ML 200 ML INFUS..BTL INJ ONE (14:55)
--- NOTE | 2020-01-02 19:20 | NUR ---
Report given to mini shifter. Respiration even and unlabored without SOB. Call light in reach.
--- NOTE | 2020-01-02 21:50 | NUR ---
PATIENT RESTING IN BED AOX4, NO SIGNS OF DISTRESS NOTED. PATIENT HAS SIGNED CONSENT FOR PROCEDURE IN THE MORNING AND IS AWARE OF NPO AFTER MIDNIGHT, PATIENT VOICES NO PAIN AT THIS TIME. IV ANTIBIOTICS ARE RUNNING AT ORDERED RATE. BED IS LOW, SIDE RAILS ARE UP, CALL LIGHT WITHIN REACH, WILL CONTINUE TO MONITOR.
[2020-01-03 00:25] VITALS: BP 111/68
[2020-01-03] MEDS: PIPER-TAZ 3.375 GM 50 ML IV SCH ×4 (03:20→21:00)
[2020-01-03 04:00] VITALS: BP 113/72
[2020-01-03 07:21] VITALS: BP 109/72
[2020-01-03 07:22] VITALS: BP 109/72
--- NOTE | 2020-01-03 07:32 | Progress Note ---
DATE: 01/03/2020 SUBJECTIVE: The patient is a 69-year-old, who came in with small bowel obstruction. The patient had a CT scan done showed a tumor on the CT scan. The patient is scheduled for exploratory laparotomy. CT shows a persistent finding of small bowel obstruction, suspect lesion close approximate to the ileocecal valve. PHYSICAL EXAMINATION: VITAL SIGNS: Temperature is afebrile, pulse of 84, respirations 18, and blood pressure is 130/72. HEENT: No icterus present. CVS: S1 and S2 normal. Regular rate and rhythm. ABDOMEN: Slightly distended. EXTREMITIES: No clubbing, no cyanosis, no edema. Bowel sounds are present. LABORATORY VALUES: None done today. Coags are normal limits for surgery. ASSESSMENT: 1. 69-year-old with small bowel obstruction. 2. Obstructive lesion approximate to the ileocecal valve. 3. Hypertension. 4. Hyperlipidemia. PLAN: Ex-lap today by . Further recommendation on clinical course and also finding on the laparotomy. We will check his labs tomorrow in the morning postoperatively. MD SOPHIA ChinJ/MODL /[id number]
[2020-01-03] MEDS: PANTOPRAZOLE 40 MG 10ML VIAL IV SCH (08:51)
[2020-01-03 11:58] VITALS: BP 139/99
[2020-01-03] MEDS ORDERED: SCOPOLAMINE 1.5 MG PATCH ONE (18:38)
[2020-01-03] MEDS ORDERED: PHENYLEPHRINE HCL 1% 10 MG/ML VIAL ONE (20:03)
[2020-01-03] MEDS ORDERED: HYDROMORPHONE 0.2MG/ML-SOD CHL 30ML PCA SYRINGE IV PRN (21:15)
[2020-01-03] MEDS ORDERED: NALOXONE HCL INJ 0.4 MG/ML AMP IV PRN (21:15)
[2020-01-03] MEDS ORDERED: ALBUMIN 25% 12.5GM 50ML 50 ML IV ONE (21:22)
[2020-01-03] MEDS ORDERED: ALBUMIN 5% 250ML 500 ML IV PRN (21:30)
[2020-01-03] MEDS ORDERED: ALBUMIN 25% 12.5GM 50ML 50 ML IV NR (22:00)
[2020-01-03] MEDS ORDERED: HYDROMORPHONE 0.2MG/ML-SOD CHL 30ML PCA SYRINGE IV ONE (22:28)
[2020-01-03 23:08] VITALS: BP 102/69
--- NOTE | 2020-01-03 23:10 | NUR ---
RECEIVED FROM PACU. NGT TO Altaf GARCIA CONNECTED TO LWS. LIRIANO TO BSD WITH 60 CC CLEAR YELLOW URINE IN BAG. DRESSING TO ABD C/D/I WITH ABD BINDER IN PLACE. AROUSES EASILY, REINFORCED CAMERA PROTOTYPING ENGINEER PUMP TEACHING.
[2020-01-03] MEDS: DEXTROSE 5%/LACTATED RINGERS 1,000 ML IV SCH (23:57)
[2020-01-03] MEDS: SODIUM CHLORIDE 0.9% 250ML IRRIG IR SCH (23:57)
[2020-01-04] VITALS (28 sets, daily range): BP systolic 96–132; BP diastolic 65–88
[2020-01-04] MEDS: METRONIDAZOLE 500MG/NS 100ML 100 ML IV SCH ×4 (00:08→17:30)
--- NOTE | 2020-01-04 00:30 | NUR ---
140 CC CLEAR YELLOW URINE IN UROMETER
--- NOTE | 2020-01-04 00:49 | Operative Report ---
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 OPERATION PERFORMED: Exploratory laparotomy and right ileocolectomy. ASSISTANTS: 1. Dr. Artur Rodriguez. 2. JANI Tolentino. ANESTHESIA: General. COMPLICATIONS: None. ESTIMATED BLOOD LOSS: 250 mL. DESCRIPTION OF PROCEDURE: With the patient lying in bed in the supine position under good general endotracheal anesthesia, the abdomen was prepped with Betadine solution and draped in the usual manner. A midline incision was made, was carried down through the subcutaneous tissue down to the midline fascia. The midline fascia was opened. The peritoneum was opened and the abdomen was entered. Upon entering the abdominal cavity, exploration revealed multiple adhesions from the patient's previous surgery. The right colon was riding up high at the level of the right upper quadrant and there was a palpable mass right at the ileocecal valve that was present. The transverse colon was stuck to the gallbladder fossa from the patient's previous cholecystectomy. There were also small-bowel adhesions, all of these adhesions were lysed. The liver did not show any palpable metastatic disease. There did appear to be some adenopathy though at around the right colon. We decided to go ahead and proceed with a right hemicolectomy as this was the only way to resect this lesion and with it being, basically at the ileocecal valve, it has to be treated like a colonic lesion. The right colon was then mobilized off the lateral gutter and brought medially. The right ureter was identified and preserved. The duodenum was identified and preserved. The transverse colon that was stuck to the liver was slowly and carefully and brought downward. The lesser sac was then entered and divided with the EnSeal device. At this point, we had the colon well-mobilized and the colon was then divided at the level of the mid transverse colon with an application of JASON-75 stapler. We went proximal to the lesion in the small-bowel, where normal bowel was present and there was no further adenopathy in this area and then this was also divided with another application of the JASON-75 stapler. The mesentery of the colon was then slowly and carefully divided with the EnSeal device with a larger vessels ligated with 0 silk and divided. The specimen was sent for pathological examination. Examination of the specimen once it was totally removed, revealed that the lesion appeared to be emanating from the small bowel just proximal to the ileocecal valve with what appeared to be probably some invasion of the ileocecal valve itself. The anastomosis was then performed with another application of JASON-75 stapler bringing the ileum to the mid transverse colon and the remaining opening was closed with a TA-60 stapler. Gloves and instruments were then changed. The anastomosis was then reinforced with interrupted sutures of 3-0 silk, the mesenteric rent was closed with 2-0 Vicryl, and the abdomen was then copiously irrigated with saline solution. Perfect hemostasis was ascertained. All the excess fluid was aspirated and the abdomen was then closed in layers. The peritoneum was closed with a running suture of #1 Vicryl, the midline fascia was closed with a running suture of #1 Vicryl, and the skin was closed with clips. A dressing was applied. The sponge, lap, and needle count was correct. The patient tolerated the procedure well and returned to the recovery room in stable condition. MD PAZ Granda/EMORY /[id number]
[2020-01-04] MEDS: SODIUM CHLORIDE 0.9% 250ML IRRIG IR SCH ×6 (01:09→21:30)
[2020-01-04] MEDS: PIPER-TAZ 3.375 GM 50 ML IV SCH ×4 (03:26→21:30)
[2020-01-04] MEDS: DEXTROSE 5%/LACTATED RINGERS 1,000 ML IV SCH ×3 (03:35→17:28)
[2020-01-04 05:07] LABS: BASOPHILS # (AUTO) 0.1 (0.0-0.1); BASOPHILS % 0.2 % (0.0-1.0); HEMOGLOBIN 11.4 g/dL (14.0-18.0); LYMPHOCYTES # (AUTO) 0.4 (1.0-3.2); RED CELL DISTRIBUTION WIDTH 13.5 % (11.7-14.4)
[2020-01-04 05:09] LABS: EOSINOPHILS # (AUTO) 0.1 (0.0-0.4); EOSINOPHILS % 0.2 % (0.0-6.0); HEMATOCRIT 33.6 % (38.2-49.6); LYMPHOCYTES % 1.3 % (18.0-39.1); MEAN CORPUSCULAR HEMOGLOBIN 31.1 pg (28-32); MEAN CORPUSCULAR HGB CONC 33.9 g/dL (31-35); MEAN CORPUSCULAR VOLUME 91.8 fL (81-99); MONOCYTES # (AUTO) 1.1 (0.2-0.8); MONOCYTES % 3.5 % (4.4-11.3); NEUTROPHILS % 93.5 % (38.7-80.0); PLATELET COUNT 402 x10e3/uL (140-360); RED BLOOD COUNT 3.66 x10e6/uL (4.3-5.7)
[2020-01-04 05:35] LABS: ALANINE AMINOTRANSFERASE 59 IU/L (0-55); ALBUMIN 3.5 g/dL (3.5-5.0); ALBUMIN/GLOBULIN RATIO 1.7 (0.8-2.0); ALKALINE PHOSPHATASE 49 IU/L (40-150); ANION GAP 16.8 mmol/L (8-16); BLOOD UREA NITROGEN 10 mg/dL (7-26); BUN/CREATININE RATIO 10 (6-25); CARBON DIOXIDE 15 mmol/L (22-29); CHLORIDE 113 mmol/L (98-107); EST GLOMERULAR FILTRATION RATE > 60 ML/MIN (60-); GLUCOSE 193 mg/dL (74-118); POTASSIUM 3.8 mmol/L (3.5-5.1); SODIUM 141 mmol/L (136-145)
[2020-01-04 07:24] LABS: LYMPHOCYTES % (MANUAL) 3 % (19-48); MONOCYTES % (MANUAL) 2 % (3.4-9.0); NEUTROPHILS % (MANUAL) 95 % (40-74)
--- NOTE | 2020-01-04 08:05 | Progress Note ---
DATE: 01/04/2020 SUBJECTIVE: The patient is a 69-year-old gentleman, who came in with small bowel obstruction. The patient had been treated conservatively for about 5 days. The patient did not show any improvement. Repeat CT scan was done by , which showed an ileocecal valve lesion. The patient had a laparotomy yesterday and removal of the lesion and sent for biopsy. Currently, the patient is status post exploratory laparotomy, doing well. Pain is controlled with a ENGINEERING PRODUCTION WORKER pump. At this time, no chest pain, no shortness of breath. NG tube in place and the patient is n.p.o. Urine output is within normal limits and patient's vital signs are normal. Also, the patient had hypertension, which has resolved since. OBJECTIVE: VITAL SIGNS: Temperature is afebrile at 98, pulse of 106, respirations of 17, blood pressure is 109/78, pulse oximetry of 97% on 3 L of oxygen. HEENT: Normocephalic. The patient has an NG tube to suction. CVS: S1 and S2, tachy. ABDOMEN: In a binder. No drainage noted. The patient has no bowel sounds. EXTREMITIES: No clubbing, no cyanosis, no edema. Positive for good pulses in the lower extremities. LABORATORY VALUES: White count is 32,000, hemoglobin of 11.4, hematocrit of 33.6, neutrophil count is 93.5. Chemistry; sodium of 141, potassium 3.8, BUN of 10, creatinine of 1.0. The patient has an indwelling catheter. ASSESSMENT: Mr. Fadi Meneses is a 69-year-old gentleman with: 1. Small bowel obstruction, ileocecal valve lesion, status post exploratory laparotomy. The patient is in the ICU. Continue monitoring the patient. 2. Hypertension, which is currently controlled and the patient is currently hypertensive. Fluid resuscitation in progress. 3. Hyperlipidemia, stay off medications at this time. The patient has SCD for DVT prophylaxis. The patient has Cevallos catheter, which will be discontinued soon. 4. Reactive leukocytosis. Currently, the patient is on Zosyn and metronidazole. Continue on same antibiotic. PLAN: Continue monitoring the patient. CBC, CMP for tomorrow. Continue monitoring his vitals and . Further recommendation per clinical course and according to . MD PARISH Chin/EMORY /[id number]
[2020-01-04] MEDS: PANTOPRAZOLE 40 MG 10ML VIAL IV SCH (09:09)
--- NOTE | 2020-01-04 13:56 | NUR ---
Nutrition Intervention Note RD Recommendation(s) for Physician: - PPN Rec's: 1800 ml TV, 10% D10/500 ml, AA 8.5%/500 ml, standard lytes, MVI, trace, and thiamine. To provide 612 kcal, 90 gm dextrose, and 77 gm protein. - Decrease or discontinue IVF with initiation of PPN. - Please check Mg and Phos with BMP with am labs. Replace low lytes as needed. - If unable to advance diet soon, recommend central access placement for TPN to better meet needs. - When feasible, ADAT to GI soft per MD. Plan of Care: RD following, monitoring for tolerance and adequacy. Pt denied ONS. PPN rec's Nutrition reason for involvement: f/u RD Assessment 01/04: Follow up. Pt NPO currently, pt now NPO/CL x day 8. Pt sleeping at time of visit. Pt s/p ex-lap yesterday with ileocecal valve lesion removal and biopsy yesterday. Pt discussed during rounds, PPN rec's discussed with RN and rec's placed in chart. Pt with peripheral access only currently. Noted Cl elevated, pt on LR at 150 ml/hr. Chart reviewed. Will continue to monitor. 01/02: Follow up: Pt was seen resting in bed, clear liquid tray at bedside, NG tube taken out. The pt reported he has been tolerating the clear liquids, no N/V and he had a BM. Pt reported he is supposed to be advanced to a full liquid diet today, pt has been NPO/clear liquids for 6 days now. Spoke with nurse, he is getting a CT of his abdomen today and after that the pt will hopefully be advanced. If diet is not advanced by tmrw, 01/[address] for TPN if appropriate. Pt does have an appetite. Per MD- he will continue to clear liquids for now. Will continue to monitor. Initial encounter with patient. Diet Hx: pt has no known food allergies. Pt denies any N,V,D. Small BM this morning. Pt has missing teeth and wears partials. The RD did discuss the possibility of PN if pt needed to be NPO greater than 7 days. NPO to continue with NGT to suction. Pt only has IV access at this time. Principal Problems/Diagnoses: SBO PMH: GERD GI: Abd: soft LBM: 01/02 +NGT Skin: intact Labs: 01/04: Na 141, K 3.8, Cl 113, CO2 15, BUN 10, Cr 1, Gluc 193, Ca 8, AST 52, ALT 59 Meds: abx, protonix, zofran, dilaudid, phenergan, IV albumin IVF: D5LR at 150 ml/hr (180 gm dextrose/day) Ht:66 in. Wt:178lbs BMI:28.7kg/M2 IBW:142lbs Malnutrition Evaluation (01/04/20) The patient does not meet criteria for a specified degree of malnutrition at this time. Will re-evaluate at follow-up as appropriate. Nutrition Prescription (Diet Order): NPO Estimated Nutritional Needs: 9340-8635 calories/day (18-22 kcal/kg/CBW) (80 kg) 81-120g protein/day ( 1-1.5g pro/kg/BW) Diet Education Needs Assessment: Diet education not indicated. Nutrition Care Level: High Nutrition Diagnosis: Altered GI function related to decreased gastric motility as evidenced by SBO Goal: Patient will meet 75-100% of estimated needs by follow up Progress: Progressing Interventions: Composition, Rate, Route, IVF, Prescription medications, modified diet (fiber) Monitoring/Evaluation: Total energy intake, Total protein intake, Formula/Solution, IVF, Prescription medication, Weight change, modified diet Signed: Brigitte Giordano RD, LD, [facility]
[2020-01-04 16:45] LABS: BASOPHILS % 0.1 % (0.0-1.0); HEMATOCRIT 32.8 % (38.2-49.6); HEMOGLOBIN 11.5 g/dL (14.0-18.0); LYMPHOCYTES # (AUTO) 0.8 (1.0-3.2); LYMPHOCYTES % 3.2 % (18.0-39.1); MEAN CORPUSCULAR HEMOGLOBIN 31.3 pg (28-32); MEAN CORPUSCULAR HGB CONC 35.1 g/dL (31-35); MEAN CORPUSCULAR VOLUME 89.4 fL (81-99); MONOCYTES # (AUTO) 1.8 (0.2-0.8); MONOCYTES % 7.1 % (4.4-11.3); NEUTROPHILS # (AUTO) 22.3 (2.1-6.9); PLATELET COUNT 418 x10e3/uL (140-360); RED BLOOD COUNT 3.67 x10e6/uL (4.3-5.7); RED CELL DISTRIBUTION WIDTH 13.6 % (11.7-14.4)
[2020-01-04 17:02] LABS: ANION GAP 7.1 mmol/L (8-16); BLOOD UREA NITROGEN 9 mg/dL (7-26); BUN/CREATININE RATIO 12 (6-25); CALCIUM 8.5 mg/dL (8.4-10.2); CARBON DIOXIDE 23 mmol/L (22-29); CHLORIDE 113 mmol/L (98-107); CREATININE, SERUM 0.78 mg/dL (0.72-1.25); EST GLOMERULAR FILTRATION RATE > 60 ML/MIN (60-); GLUCOSE 193 mg/dL (74-118); POTASSIUM 3.1 mmol/L (3.5-5.1); SODIUM 140 mmol/L (136-145)
[2020-01-04] MEDS ORDERED: KETAMINE HCL INJ 50 MG/ML 10 ML VIAL ONE (18:30)
[2020-01-04] MEDS ORDERED: MIDAZOLAM HCL 2 MG/2 ML VIAL ONE (18:30)
[2020-01-04] MEDS ORDERED: FENTANYL CITRATE/PF 100MCG/2 ML INJ ONE (18:30)
--- NOTE | 2020-01-04 19:00 | NUR ---
Report received. Assumed care. Assessment done. See interventions. IV D5LR @ 150ml/hr. INSPECTOR MACHINED PARTS Dilaudid for pain control. O2 per NC @ 3L.
[2020-01-05] VITALS (16 sets, daily range): BP systolic 116–135; BP diastolic 70–90
[2020-01-05] MEDS: METRONIDAZOLE 500MG/NS 100ML 100 ML IV SCH ×4 (00:22→17:30)
[2020-01-05] MEDS: SODIUM CHLORIDE 0.9% 250ML IRRIG IR SCH ×6 (00:23→20:33)
[2020-01-05] MEDS: DEXTROSE 5%/LACTATED RINGERS 1,000 ML IV SCH ×3 (00:23→17:19)
[2020-01-05] MEDS: PIPER-TAZ 3.375 GM 50 ML IV SCH ×4 (03:30→21:12)
[2020-01-05 05:10] LABS: BASOPHILS % 0.1 % (0.0-1.0); EOSINOPHILS # (AUTO) 0.1 (0.0-0.4); EOSINOPHILS % 0.3 % (0.0-6.0); HEMATOCRIT 31.7 % (38.2-49.6); LYMPHOCYTES # (AUTO) 1.3 (1.0-3.2); LYMPHOCYTES % 6.7 % (18.0-39.1); MEAN CORPUSCULAR HEMOGLOBIN 31.4 pg (28-32); MEAN CORPUSCULAR HGB CONC 34.7 g/dL (31-35); MEAN CORPUSCULAR VOLUME 90.6 fL (81-99); MONOCYTES # (AUTO) 1.4 (0.2-0.8); MONOCYTES % 7.5 % (4.4-11.3); PLATELET COUNT 365 x10e3/uL (140-360); RED CELL DISTRIBUTION WIDTH 13.7 % (11.7-14.4)
[2020-01-05 05:27] LABS: ANION GAP 8.9 mmol/L (8-16); BLOOD UREA NITROGEN 7 mg/dL (7-26); BUN/CREATININE RATIO 9 (6-25); CALCIUM 8.4 mg/dL (8.4-10.2); CARBON DIOXIDE 25 mmol/L (22-29); CHLORIDE 112 mmol/L (98-107); CREATININE, SERUM 0.75 mg/dL (0.72-1.25); EST GLOMERULAR FILTRATION RATE > 60 ML/MIN (60-); GLUCOSE 157 mg/dL (74-118); SODIUM 143 mmol/L (136-145)
[2020-01-05 05:32] LABS: POTASSIUM 2.9 mmol/L (3.5-5.1)
--- NOTE | 2020-01-05 06:03 | NUR ---
K+ 2.[address] Bernal. Orders given.
[2020-01-05] MEDS ORDERED: POTASSIUM CHLORIDE 20MEQ/100ML 200 ML IV ONE (06:35)
[2020-01-05 07:17] LABS: ALANINE AMINOTRANSFERASE 51 IU/L (0-55); ALBUMIN 3.1 g/dL (3.5-5.0); ALBUMIN/GLOBULIN RATIO 1.5 (0.8-2.0); ALKALINE PHOSPHATASE 47 IU/L (40-150); ANION GAP 8.9 mmol/L (8-16); BLOOD UREA NITROGEN 7 mg/dL (7-26); BUN/CREATININE RATIO 9 (6-25); CALCIUM 8.5 mg/dL (8.4-10.2); CARBON DIOXIDE 25 mmol/L (22-29); CHLORIDE 112 mmol/L (98-107); CREATININE, SERUM 0.74 mg/dL (0.72-1.25); EST GLOMERULAR FILTRATION RATE > 60 ML/MIN (60-); GLUCOSE 166 mg/dL (74-118); SODIUM 143 mmol/L (136-145)
[2020-01-05 07:19] LABS: POTASSIUM 2.9 mmol/L (3.5-5.1)
[2020-01-05] MEDS: PANTOPRAZOLE 40 MG 10ML VIAL IV SCH (08:51)
--- NOTE | 2020-01-05 10:10 | Progress Note ---
DATE: 01/05/2020 SUBJECTIVE: A 69-year-old gentleman, who came in with small bowel obstruction, was found to have ileocecal lesions, status post laparotomy. The patient is stable. No bowel sounds, no flatus, and no bowel movements. Currently, the patient has an NG tube, slept well through the night, had some pain, is on a RETAIL BUSINESS ANALYST pump. Otherwise, no chest pain or shortness of breath. He is using incentive spirometry. MEDICATIONS: He is on Dilaudid through the RETAIL BUSINESS ANALYST pump and Flagyl. The patient is also on Zofran, pantoprazole, and fluid resuscitation. OBJECTIVE: VITAL SIGNS: T-max is 99, pulse of 105, respirations of 14, blood pressure is 120/77, and pulse oximetry of 92% on 3 L of oxygen. HEENT: Normocephalic and atraumatic. The patient has an NG tube to suction. CVS: S1 and S2 normal. Regular rate and rhythm. LUNGS: Clear to auscultation bilaterally. ABDOMEN: Nontender, nondistended, binder present. EXTREMITIES: No clubbing, no cyanosis, and is on SCD. LABORATORY VALUES: White count is down to 18,000, hemoglobin of 11, hematocrit 31.7, platelet count 365, and neutrophil count is 85. Chemistries show sodium of 143, potassium of 2.9, BUN of 7, and creatinine of 0.75. Pathology, no results yet. ASSESSMENT: Mr. Fadi Meneses is a 69-year-old gentleman with: 1. Small bowel obstruction, status post exploratory laparotomy. The patient is in ICU, we will keep him in ICU. The patient has had no bowel movements or flatus. Continue with NG tube. 2. Hypertension, which is very more in hypertensive mode. 3. Hyperlipidemia. Continue on the same medication. 4. Leukocytosis. The patient is currently on metronidazole. PLAN: Continue the same. Keep the patient in ICU. Further recommendation per clinical course. The patient is being followed by Dr. Leonardo Rodriguez. MD SOPHIA ChinJ/MODL /[id number]
[2020-01-06] VITALS (13 sets, daily range): BP systolic 105–136; BP diastolic 78–95
[2020-01-06] MEDS: METRONIDAZOLE 500MG/NS 100ML 100 ML IV SCH ×4 (00:07→18:24)
[2020-01-06] MEDS: SODIUM CHLORIDE 0.9% 250ML IRRIG IR SCH ×6 (01:10→21:03)
[2020-01-06] MEDS: DEXTROSE 5%/LACTATED RINGERS 1,000 ML IV SCH ×3 (02:59→14:51)
[2020-01-06] MEDS: PIPER-TAZ 3.375 GM 50 ML IV SCH ×4 (03:09→21:30)
--- NOTE | 2020-01-06 06:10 | NUR ---
french cath removed at 5am pt due to void by 1pm no complaints at this time.
[2020-01-06] MEDS ORDERED: BISACODYL 10 MG SUPP PR ONE (08:00)
[2020-01-06] MEDS: PANTOPRAZOLE 40 MG 10ML VIAL IV SCH (08:30)
[2020-01-06 09:25] LABS: BASOPHILS % 0.3 % (0.0-1.0); EOSINOPHILS # (AUTO) 0.3 (0.0-0.4); EOSINOPHILS % 1.9 % (0.0-6.0); HEMATOCRIT 34.1 % (38.2-49.6); HEMOGLOBIN 11.7 g/dL (14.0-18.0); LYMPHOCYTES # (AUTO) 1.1 (1.0-3.2); LYMPHOCYTES % 7.2 % (18.0-39.1); MEAN CORPUSCULAR HEMOGLOBIN 30.8 pg (28-32); MEAN CORPUSCULAR HGB CONC 34.3 g/dL (31-35); MEAN CORPUSCULAR VOLUME 89.7 fL (81-99); MONOCYTES # (AUTO) 0.9 (0.2-0.8); MONOCYTES % 6.4 % (4.4-11.3); NEUTROPHILS # (AUTO) 12.3 (2.1-6.9); NEUTROPHILS % 83.9 % (38.7-80.0); PLATELET COUNT 382 x10e3/uL (140-360); RED CELL DISTRIBUTION WIDTH 13.3 % (11.7-14.4)
[2020-01-06 09:51] LABS: ALANINE AMINOTRANSFERASE 37 IU/L (0-55); ALBUMIN 3.1 g/dL (3.5-5.0); ALBUMIN/GLOBULIN RATIO 1.1 (0.8-2.0); ALKALINE PHOSPHATASE 51 IU/L (40-150); ANION GAP 10.7 mmol/L (8-16); BLOOD UREA NITROGEN < 5 mg/dL (7-26); CALCIUM 8.6 mg/dL (8.4-10.2); CARBON DIOXIDE 28 mmol/L (22-29); CHLORIDE 103 mmol/L (98-107); CREATININE, SERUM 0.65 mg/dL (0.72-1.25); EST GLOMERULAR FILTRATION RATE > 60 ML/MIN (60-); GLUCOSE 141 mg/dL (74-118); SODIUM 139 mmol/L (136-145)
--- NOTE | 2020-01-06 10:15 | Progress Note ---
DATE: 01/06/2020 SUBJECTIVE: The patient is a 69-year-old gentleman with a history of small bowel obstruction status post exploratory laparotomy status post removal of ileocecal lesion or mass. The patient is currently still n.p.o. NG tube in place. No bowel sounds. No bowel movements. No flatus either. The patient has been burping a lot. Abdominal pain is controlled. No chest pain. No shortness of breath. No nausea, vomiting, or diarrhea. MEDICATIONS: The patient is takin. Hydromorphone. 2. Metronidazole. 3. Pantoprazole. 4. Zosyn. 5. Promethazine as needed. OBJECTIVE: VITAL SIGNS: On examination, temperature is 99.2, T-max is the patient's pulse of 94, respirations of 19, blood pressure is 124/78, pulse oximetry of 98%, and O2 at 3 L of oxygen. HEENT: Normocephalic and atraumatic. NG tube in place to suction. CVS: S1 and S2 normal. Regular rate and rhythm. ABDOMEN: Binder. Bowel sounds not present. EXTREMITIES: No clubbing, no cyanosis, no edema. LABORATORY DATA: Pending from today. Yesterday's potassium is 2.9. Path results none available. ASSESSMENT AND PLAN: Mr. Fadi Meneses is a 69-year-old gentleman with: 1. Small-bowel obstruction. Continue with NG tube. The patient can move out of the ICU, can be moved to Medicine with telemetry. 2. Hypertension. Continue monitoring his pressures. 3. Pain control. 4. Leukocytosis. Await CBC today. MD SOPHIA ChinJ/MODL /[id number]
[2020-01-06 10:22] LABS: BUN/CREATININE RATIO 8 (6-25)
[2020-01-06 10:24] LABS: POTASSIUM 2.7 mmol/L (3.5-5.1)
--- NOTE | 2020-01-06 10:35 | NUR ---
notified dr. morgan of K+ 2.7 result. new order received to replace potassium
[2020-01-06] MEDS ORDERED: POTASSIUM CHLORIDE 20MEQ/100ML 200 ML IV ONE ×2 (10:45→18:00)
--- NOTE | 2020-01-06 13:00 | NUR ---
patient has not voided since removing french at 0500. notified (unable to reach surgery MD). okay to straight cath patient prior to transferring patient to floor.,
--- NOTE | 2020-01-06 13:22 | NUR ---
STRAIGHT CATH WITH 700ML URINE OUT.
--- NOTE | 2020-01-06 14:00 | NUR ---
NGT REMOVED AT BEDSIDE. COAL CUTTING MACHINE OPERATOR DISCONTINED WELL PRIOR TO TRANSFER TO FLOOR 109
--- NOTE | 2020-01-06 14:00 | NUR ---
Received report from Bella in ICU, patient is to transfer to room 109.
--- NOTE | 2020-01-06 14:05 | NUR ---
Received patient on wheelchair transferred to bed. Respiration even and unlabored without SOB. Call light in reach. Denies pain at this time.
[2020-01-06] MEDS: HYDROMORPHONE 1MG/1ML INJ IV PRN (16:31)
[2020-01-06] MEDS: ONDANSETRON HCL INJ 2MG/ML 2ML 2 MG/ML VIAL IV PRN (16:31)
--- NOTE | 2020-01-06 17:55 | NUR ---
Verbal order given by Dr. Miller Rodriguez that if patient is not voiding between 11 am to 12 midnight, french catheter should be inserted.
--- NOTE | 2020-01-06 18:18 | NUR ---
Nutrition Intervention Note RD Recommendation(s) for Physician: - When medically appropriate, advance to GI soft diet - Recommend Ensure Clear BID for added nutrition Plan of Care: RD following, monitoring for tolerance and adequacy. Nutrition reason for involvement: follow up RD Assessment 01/06: Follow up. Pt was started on a clear liquid diet today. Pt has been NPO/CL for the past 10 days. Per nursing note, NGT was removed at bedside. Will continue to monitor. 01/04: Follow up. Pt NPO currently, pt now NPO/CL x day 8. Pt sleeping at time of visit. Pt s/p ex-lap yesterday with ileocecal valve lesion removal and biopsy yesterday. Pt discussed during rounds, PPN rec's discussed with RN and rec's placed in chart. Pt with peripheral access only currently. Noted Cl elevated, pt on LR at 150 ml/hr. Chart reviewed. Will continue to monitor. 01/02: Follow up: Pt was seen resting in bed, clear liquid tray at bedside, NG tube taken out. The pt reported he has been tolerating the clear liquids, no N/V and he had a BM. Pt reported he is supposed to be advanced to a full liquid diet today, pt has been NPO/clear liquids for 6 days now. Spoke with nurse, he is getting a CT of his abdomen today and after that the pt will hopefully be advanced. If diet is not advanced by tmrw, 01/[address] for TPN if appropriate. Pt does have an appetite. Per MD- he will continue to clear liquids for now. Will continue to monitor. 12/31: Initial encounter with patient. Diet Hx: pt has no known food allergies. Pt denies any N,V,D. Small BM this morning. Pt has missing teeth and wears partials. The RD did discuss the possibility of PN if pt needed to be NPO greater than 7 days. NPO to continue with NGT to suction. Pt only has IV access at this time. Principal Problems/Diagnoses: SBO PMH: GERD GI: Abd: soft LBM: 01/04 Skin: intact I/O: 3330/2690 Labs: 01/06: Na 139 K 2.7, BUN <5, Creat 0.65, Glu 141 01/04: Na 141, K 3.8, Cl 113, CO2 15, BUN 10, Cr 1, Gluc 193, Ca 8, AST 52, ALT 59 Meds: NaCl, KCl, metronidazole, zofran, KCl Ht:66 in. Wt: 185 lbs (01/05), 178lbs (12/31) BMI:29.9kg/M2 IBW:142lbs Malnutrition Evaluation (01/04/2020) The patient does not meet criteria for a specified degree of malnutrition at this time. Will re-evaluate at follow-up as appropriate. Nutrition Prescription (Diet Order): NPO Estimated Nutritional Needs: 7765-3276 calories/day (18-22 kcal/kg/BW) (80 kg) 81-120g protein/day ( 1-1.5g pro/kg/BW) Diet Education Needs Assessment: Diet education not indicated. Nutrition Care Level: High Nutrition Diagnosis: Altered GI function related to decreased gastric motility as evidenced by SBO Goal: Patient will meet 75-100% of estimated needs by follow up Progress: Not progressing Interventions: modified diet (fiber), Commercial Beverage Monitoring/Evaluation: Total energy intake, Total protein intake, Liquid supplement, Weight change, modified diet Signed: Jenifer Yeboah RD, LD
--- NOTE | 2020-01-06 19:00 | NUR ---
Report given to shift lab technician. Respiration even and unlabored without SOB. Call light in reach.
--- NOTE | 2020-01-06 20:42 | NUR ---
PATIENT VOIDED AT THIS TIME
[2020-01-06] MEDS ORDERED: POTASSIUM CHLORIDE 20MEQ/100ML 200 ML IV NR (21:00)
[2020-01-06] MEDS: BISACODYL 10 MG SUPP PR SCH (21:02)
[2020-01-07] VITALS (9 sets, daily range): BP systolic 108–134; BP diastolic 68–87
[2020-01-07] MEDS: METRONIDAZOLE 500MG/NS 100ML 100 ML IV SCH ×5 (00:08→23:56)
[2020-01-07] MEDS: HYDROMORPHONE 1MG/1ML INJ IV PRN ×2 (00:54→18:45)
[2020-01-07] MEDS: SODIUM CHLORIDE 0.9% 250ML IRRIG IR SCH (01:15)
[2020-01-07] MEDS: PIPER-TAZ 3.375 GM 50 ML IV SCH ×3 (03:15→16:30)
[2020-01-07 05:48] LABS: BASOPHILS % 0.3 % (0.0-1.0); EOSINOPHILS # (AUTO) 0.4 (0.0-0.4); EOSINOPHILS % 4.1 % (0.0-6.0); HEMATOCRIT 32.1 % (38.2-49.6); HEMOGLOBIN 10.8 g/dL (14.0-18.0); LYMPHOCYTES # (AUTO) 0.9 (1.0-3.2); LYMPHOCYTES % 9.3 % (18.0-39.1); MEAN CORPUSCULAR HEMOGLOBIN 30.7 pg (28-32); MEAN CORPUSCULAR HGB CONC 33.6 g/dL (31-35); MEAN CORPUSCULAR VOLUME 91.2 fL (81-99); MONOCYTES # (AUTO) 0.7 (0.2-0.8); NEUTROPHILS # (AUTO) 7.9 (2.1-6.9); NEUTROPHILS % 78.9 % (38.7-80.0); PLATELET COUNT 353 x10e3/uL (140-360); RED BLOOD COUNT 3.52 x10e6/uL (4.3-5.7); RED CELL DISTRIBUTION WIDTH 13.5 % (11.7-14.4)
[2020-01-07 06:07] LABS: BLOOD UREA NITROGEN 5 mg/dL (7-26); BUN/CREATININE RATIO 7 (6-25); CALCIUM 8.4 mg/dL (8.4-10.2); CARBON DIOXIDE 29 mmol/L (22-29); CHLORIDE 106 mmol/L (98-107); EST GLOMERULAR FILTRATION RATE > 60 ML/MIN (60-); GLUCOSE 125 mg/dL (74-118); SODIUM 141 mmol/L (136-145)
[2020-01-07] MEDS ORDERED: POTASSIUM CHLORIDE 20MEQ/100ML 200 ML IV ONE (07:00)
--- NOTE | 2020-01-07 07:03 | NUR ---
Received patient lying on the bed with eyes closed, respiration even and unlabored without SOB. Call light in reach.
--- NOTE | 2020-01-07 07:40 | Progress Note ---
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 No chest pain or shortness of breath. The patient's NG tube was removed yesterday. Started on clear liquid diet. The patient is tolerating it. Bowel sounds are positive. The patient had flatus. No bowel movement yet. No nausea, no vomiting. Continues to walk. No chest pain. OBJECTIVE: VITAL SIGNS: Temperature is afebrile, respirations of 18, pulse of 101, blood pressure is 109/71, pulse oximetry of 98%. HEENT: Normocephalic and atraumatic. NG tube out. CVS: S1 and S2 normal. Regular rate and rhythm. ABDOMEN: In a binder. Bowel sounds are positive. EXTREMITIES: No clubbing, no cyanosis, no edema. LABORATORY VALUES: White count is down to 9.97, hemoglobin of 10.8, hematocrit of 32.1. Chemistries: Potassium is little low at 3, sodium is 141, BUN of 5, and creatinine 0.70. Pathology: No results yet. ASSESSMENT: 1. Mr. Fadi Meneses with small bowel obstruction, status post exploratory laparotomy with resection of the tumor. 2. Hypertension. 3. Leukocytosis. 4. Hypokalemia. PLAN: 1. Advancing diet. 2. Continue with monitoring of blood pressures. 3. Replace potassium. 4. Leukocytosis, better. We will continue monitoring the patient. Further recommendation per clinical course. MD PARISH Chin/MODL /[id number]
[2020-01-07] MEDS: BISACODYL 10 MG SUPP PR SCH (08:33)
[2020-01-07] MEDS: PANTOPRAZOLE 40 MG 10ML VIAL IV SCH (08:33)
[2020-01-07] MEDS: HYDROCODONE/APAP 7.5MG-325MG 1 EA TAB PO PRN ×2 (08:34→23:58)
[2020-01-07] MEDS: DEXTROSE 5%/LACTATED RINGERS 1,000 ML IV SCH (12:09)
--- NOTE | 2020-01-07 19:10 | NUR ---
Report given to night court magistrate. Respiration even and unlabored without SOB. Call light in reach.
[2020-01-08] VITALS (9 sets, daily range): BP systolic 104–157; BP diastolic 65–87
[2020-01-08] MEDS: METRONIDAZOLE 500MG/NS 100ML 100 ML IV SCH ×4 (06:00→23:44)
[2020-01-08 06:15] LABS: ANION GAP 9.9 mmol/L (8-16); BLOOD UREA NITROGEN 6 mg/dL (7-26); BUN/CREATININE RATIO 8 (6-25); CALCIUM 8.7 mg/dL (8.4-10.2); CARBON DIOXIDE 28 mmol/L (22-29); CHLORIDE 106 mmol/L (98-107); CREATININE, SERUM 0.71 mg/dL (0.72-1.25); EST GLOMERULAR FILTRATION RATE > 60 ML/MIN (60-); GLUCOSE 105 mg/dL (74-118); SODIUM 141 mmol/L (136-145)
[2020-01-08 06:17] LABS: POTASSIUM 2.9 mmol/L (3.5-5.1)
--- NOTE | 2020-01-08 06:32 | NUR ---
PAGED DR. RAYMUNDO AT THIS TIME REGARDING POTASSIUM 2.9, AWAITING CALL BACK
--- NOTE | 2020-01-08 06:48 | NUR ---
Received bedside shift report from off going nurse. Patient is in stable condition, no acute distress noted. Call light within reach. Bed in the lowest position.
--- NOTE | 2020-01-08 06:50 | NUR ---
DR. RAYMUNDO DOING ROUNDS NEW ORDER RCV
[2020-01-08] MEDS ORDERED: DEXTROSE 5%/LACTATED RINGERS 1,000 ML IV SCH (07:00)
[2020-01-08] MEDS ORDERED: POTASSIUM CHLORIDE 20MEQ/100ML 200 ML IV ONE (07:30)
[2020-01-08] MEDS ORDERED: POTASSIUM CHLORIDE IV SCH (07:39)
[2020-01-08] MEDS ORDERED: DEXTROSE IV SCH ×2 (07:39→12:00)
[2020-01-08] MEDS ORDERED: LACTATED RINGERS IV SCH ×2 (07:39→12:00)
[2020-01-08] MEDS: PANTOPRAZOLE 40 MG 10ML VIAL IV SCH (07:54)
[2020-01-08] MEDS: PAROXETINE HCL 20 MG TAB PO SCH (09:53)
--- NOTE | 2020-01-08 10:24 | Progress Note ---
DATE: 01/08/2020 SUBJECTIVE: A 69-year-old male, status post exploratory laparotomy with resection. The patient is doing better. NG tube out, tolerating clear liquids. The patient is sleeping, but easily arousable. No chest pains. No shortness of breath and has been advanced to full liquid diet. OBJECTIVE: VITAL SIGNS: Temperature is 98.2, pulse of 94, respirations of 18, blood pressure is 114/83, and pulse oximetry of 98%. HEENT: Normocephalic and atraumatic. Pupils are reactive. CVS: S1 and S2 normal. LUNGS: Clear to auscultation. ABDOMEN: In binder. Bowel sounds are positive. EXTREMITIES: No clubbing, no cyanosis, no edema. LABORATORY VALUES: His white count is trended down. Sodium is 141, potassium of 2.9. ASSESSMENT AND PLAN: 1. Mr. Fadi Meneses with bowel obstruction status post exploratory laparotomy with resection of the tumor. 2. Hypertension. 3. Leukocytosis, resolved. 4. Hypokalemia, replace and added to the IV fluids too. Pathology results are still pending. Further recommendation per clinical course. MD SOPHIA ChinJ/MODL /[id number]
[2020-01-08] MEDS ORDERED: POTASSIUM CHL IV SCH (12:00)
[2020-01-08] MEDS: HYDROCODONE/APAP 7.5MG-325MG 1 EA TAB PO PRN ×3 (13:20→22:38)
--- NOTE | 2020-01-08 19:22 | NUR ---
Bedside shift report given to oncoming nurse. Patient is resting in bed, no acute distress noted. Call light within reach. Bed in the lowest position.
[2020-01-09 00:18] VITALS: BP 108/67
[2020-01-09] MEDS: METRONIDAZOLE 500MG/NS 100ML 100 ML IV SCH (05:18)
[2020-01-09 05:33] VITALS: BP 128/81
[2020-01-09 06:31] LABS: ANION GAP 10.1 mmol/L (8-16); BLOOD UREA NITROGEN 6 mg/dL (7-26); BUN/CREATININE RATIO 9 (6-25); CALCIUM 8.1 mg/dL (8.4-10.2); CARBON DIOXIDE 25 mmol/L (22-29); CHLORIDE 107 mmol/L (98-107); CREATININE, SERUM 0.67 mg/dL (0.72-1.25); EST GLOMERULAR FILTRATION RATE > 60 ML/MIN (60-); GLUCOSE 117 mg/dL (74-118); MAGNESIUM 1.6 MG/DL (1.3-2.1); POTASSIUM 3.1 mmol/L (3.5-5.1); SODIUM 139 mmol/L (136-145)
[2020-01-09] MEDS: HYDROCODONE/APAP 7.5MG-325MG 1 EA TAB PO PRN ×2 (07:23→09:27)
[2020-01-09 08:00] VITALS: BP 130/85
[2020-01-09 08:37] VITALS: BP 130/85
--- NOTE | 2020-01-09 08:43 | Progress Note ---
DATE: 01/09/2020 SUBJECTIVE: The patient is in 109. The patient is status post exploratory laparotomy with resection of bowel. The patient is feeling better. No chest pain. No shortness of breath. Has had runs of diarrhea. No formed stools at this time and has had rectal incontinence at this time. No chest pain. No shortness of breath. Feeling better, otherwise has been able to tolerate a GI soft diet. OBJECTIVE: VITAL SIGNS: Temperature is 96.4, pulse of 89, respirations 16, blood pressure is 128/81 with pulse oximetry of 92%. HEENT: Normocephalic, atraumatic. CVS: S1 and S2 normal. Regular rhythm. ABDOMEN: Nontender, nondistended in a binder and surgical wound site is clean and dry. EXTREMITIES: No clubbing, no cyanosis, no edema. ASSESSMENT: 1. Small-bowel obstruction, status post exploratory laparotomy with resection of tumor and bowel. 2. Hypertension. 3. Leukocytosis, which is resolved. 4. Hypokalemia. Chemistries show a potassium of 3.1, otherwise everything normal. Continue to monitor the patient. Further recommendation as per clinical course. Can be discharged if okay with surgery. MD PARISH Chin/EMORY /[id number]
[2020-01-09] MEDS: PAROXETINE HCL 20 MG TAB PO SCH (09:28)
[2020-01-09] MEDS: PANTOPRAZOLE 40 MG 10ML VIAL IV SCH (09:28)
[2020-01-09 12:25] VITALS: BP 120/75
--- NOTE | 2020-01-09 13:31 | NUR ---
Nutrition Intervention Note RD Recommendation(s) for Physician: - Continue Regular diet as tolerated Plan of Care: RD following, monitoring for tolerance and adequacy. Nutrition reason for involvement: follow up RD Assessment 01/09: Follow up. Pt now on Regular diet as of 01/08, pt reports tolerating well. Pt denies abdominal pain or N/V/C/D. Pt reports good appetite, but only eating 50% of meals and states "I don't want to push it." Pt declined all supplements offered. Pt with no questions or concerns at time of visit. Chart reviewed. Will continue to monitor. 01/06: Follow up. Pt was started on a clear liquid diet today. Pt has been NPO/CL for the past 10 days. Per nursing note, NGT was removed at bedside. Will continue to monitor. 01/04: Follow up. Pt NPO currently, pt now NPO/CL x day 8. Pt sleeping at time of visit. Pt s/p ex-lap yesterday with ileocecal valve lesion removal and biopsy yesterday. Pt discussed during rounds, PPN rec's discussed with RN and rec's placed in chart. Pt with peripheral access only currently. Noted Cl elevated, pt on LR at 150 ml/hr. Chart reviewed. Will continue to monitor. 01/02: Follow up: Pt was seen resting in bed, clear liquid tray at bedside, NG tube taken out. The pt reported he has been tolerating the clear liquids, no N/V and he had a BM. Pt reported he is supposed to be advanced to a full liquid diet today, pt has been NPO/clear liquids for 6 days now. Spoke with nurse, he is getting a CT of his abdomen today and after that the pt will hopefully be advanced. If diet is not advanced by tmrw, 01/[address] for TPN if appropriate. Pt does have an appetite. Per MD- he will continue to clear liquids for now. Will continue to monitor. 12/31: Initial encounter with patient. Diet Hx: pt has no known food allergies. Pt denies any N,V,D. Small BM this morning. Pt has missing teeth and wears partials. The RD did discuss the possibility of PN if pt needed to be NPO greater than 7 days. NPO to continue with NGT to suction. Pt only has IV access at this time. Principal Problems/Diagnoses: SBO PMH: GERD GI: Abd: soft LBM: 01/09 Skin: abdominal incision site Labs: 01/09: Na 139, K 3.1, BUN 6, Cr 0.67, Gluc 117, Mg 1.6 01/06: Na 139 K 2.7, BUN <5, Creat 0.65, Glu 141 01/04: Na 141, K 3.8, Cl 113, CO2 15, BUN 10, Cr 1, Gluc 193, Ca 8, AST 52, ALT 59 Meds: protonix, norco, abx, dilaudid, zofran, IV albumin, phenergan Ht:66 in. Wt: 185 lbs (01/05), 178lbs (12/31) BMI:29.9kg/M2 IBW:142lbs Malnutrition Evaluation (01/04/2020) The patient does not meet criteria for a specified degree of malnutrition at this time. Will re-evaluate at follow-up as appropriate. Nutrition Prescription (Diet Order): Regular Estimated Nutritional Needs: 0588-7627 calories/day (18-22 kcal/kg/BW) (80 kg) 81-120g protein/day ( 1-1.5g pro/kg/BW) Diet Education Needs Assessment: Diet education not indicated, pt on Regular diet Nutrition Care Level: Mod Nutrition Diagnosis: Altered GI function related to decreased gastric motility as evidenced by SBO Goal: Patient will meet 75-100% of estimated needs by follow up Progress: Progressing Interventions: General healthful diet, collaboration with other providers Monitoring/Evaluation: Total energy intake, Total protein intake, Weight change Signed: Brigitte Giordano RD, [place], [facility]
--- NOTE | 2020-01-09 15:08 | NUR ---
Pt discharged home at this time. Pt and family verbalized understanding of all discharge instructions and follow up appts. Pt was given prescription for pain medications. 0 s/s of acute distress noted at time of discharge. Abdominal surgical incision is dry and intact with luis in place and abdominal binder in place.
[2020-01-09 15:56] VITALS: BP 128/87
--- NOTE | 2020-01-28 07:01 | Discharge Summary ---
HOSPITAL COURSE: The patient came in with small bowel obstruction after failed outpatient treatment of gastroenteritis. The patient came in, NG tube was put in and the patient also had systemic inflammatory response. The patient was started on antibiotic. A consult with was done. The patient was kept on NG tube and fluid resuscitation was done. Antibiotics were given. The patient did not progress much, continued with small bowel obstruction. Etiology was very unclear at that time. The patient was on Rocephin and piperacillin-tazobactam. 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 The patient underwent an exploratory laparotomy and right hemicolectomy by Dr. Miller Rodriguez on 01/03. The patient was kept in the ICU after this. Once the patient's vitals were stabilized and the patient's bowels were moving, the patient had clear liquid diet. NG tube was clamped and taken out. The patient was feeling better. Physical Therapy was brought in. The patient is walking. Once everything was stable, the patient was discharged home. Follow up as an outpatient basis for tumor pathology. Further recommendation per clinical course. For further information, look into chart. FINAL DIAGNOSES: 1. Sepsis. 2. Small bowel obstruction. 3. Tumor of the ileocecal valve, status post resection. MD PARISH Chin/MODL /[id number]
== END 2020-01-09 15:08 | disposition home or self-care (01) | DRG 826 ==
LOC: ER 15:27 → ERHOLD 19:17 → MED/SURG 12-28 19:32 → ICU 01-03 21:53 → MED/SURG 01-06 14:15
PROVIDERS: ADMIT Family Medicine; ATTEND Family Medicine
PROC: 0DTF0ZZ Resection of Right Large Intestine, Open Approach (ICD-10-PCS; principal; 2019-12-27)
DX: C7A.8 Other malignant neuroendocrine tumors (principal); A41.9 Sepsis, unspecified organism; K56.609 Unspecified intestinal obstruction, unspecified as to partial versus complete obstruction; K50.012 Crohn's disease of small intestine with intestinal obstruction; A09 Infectious gastroenteritis and colitis, unspecified; F32.9 Major depressive disorder, single episode, unspecified; Z85.828 Personal history of other malignant neoplasm of skin; K21.9 Gastro-esophageal reflux disease without esophagitis; E78.5 Hyperlipidemia, unspecified; E87.6 Hypokalemia
CPT/HCPCS: 36415; 74022; 74177; 80048; 80053; 81001; 82550; 82553; 82948; 83690; 83735; 84484; 85025; 85610; 85730; 88307; 88309; 88342; 93005; 99284; J0696; J1100; J1170; J2001; J2250; J2270; J2370; J2405; J2543; J2550; J3010; J3480; J7030; J7042; J7050; P9045; Q9967

== ENCOUNTER → 2022-06-16 | Outpatient (CLI) | payer MEDICARE, OTHER ==
[~2022-06-16] MED LIST changes: +IOPAMIDOL 370 MG/ML 100 ML INFUS..BTL INJ ONE
[2022-06-16 08:58] LABS: CREATININE, SERUM 1.04 mg/dL (0.72-1.25)
== END ==
LOC: CT 07:41
PROVIDERS: ATTEND Internal Medicine Medical Oncology
DX: C7A.021 Malignant carcinoid tumor of the cecum (principal)
CPT/HCPCS: 36415; 74177; 82565; 84520; Q9967

== ENCOUNTER 2022-11-18 09:48 | Inpatient (IN) | payer MEDICARE, OTHER ==
[2022-11-18] VITALS (34 sets, daily range): BP systolic 53–146; BP diastolic 11–71
[~2022-11-18] VITALS: Ht 167.6 cm; Wt 85.4 kg
[~2022-11-18 09:48] MED LIST changes: -IOPAMIDOL 370 MG/ML 100 ML INFUS..BTL INJ ONE
[2022-11-18] MEDS ORDERED: DILTIAZEM HCL 5 MG/ML 5 ML VIAL IV STA ×2 (09:58→10:19)
[2022-11-18] MEDS ORDERED: SODIUM CHLORIDE 0.9% 1000ML 1,000 ML IV STA (09:58)
[2022-11-18 10:12] LABS: BASOPHILS # (AUTO) 0.1 (0.0-0.1); BASOPHILS % 0.5 % (0.0-1.0); EOSINOPHILS # (AUTO) 0.2 (0.0-0.4); EOSINOPHILS % 1.7 % (0.0-6.0); HEMATOCRIT 43.8 % (38.2-49.6); HEMOGLOBIN 13.6 g/dL (14.0-18.0); LYMPHOCYTES # (AUTO) 1.3 (1.0-3.2); LYMPHOCYTES % 13.5 % (18.0-39.1); MEAN CORPUSCULAR HEMOGLOBIN 30.7 pg (28-32); MEAN CORPUSCULAR HGB CONC 31.1 g/dL (31-35); MEAN CORPUSCULAR VOLUME 98.9 fL (81-99); MONOCYTES # (AUTO) 0.9 (0.2-0.8); NEUTROPHILS # (AUTO) 7.3 (2.1-6.9); PLATELET COUNT 345 x10e3/uL (140-360); RED BLOOD COUNT 4.43 x10e6/uL (4.3-5.7); RED CELL DISTRIBUTION WIDTH 13.5 % (11.7-14.4)
[2022-11-18] MEDS ORDERED: SODIUM CHLORIDE 0.9% 1000ML 1,000 ML ONE ×3 (10:17→19:50)
[2022-11-18 10:27] LABS: INR 1.15; PROTHROMBIN TIME 14.9 seconds (11.9-14.5)
[2022-11-18 10:28] LABS: PARTIAL THROMBOPLASTIN TIME 30.6 seconds (23.8-35.5)
[2022-11-18] MEDS ORDERED: METOPROLOL TARTRATE INJ 1 MG/ML VIAL IV ONE ×2 (10:30)
[2022-11-18 10:35] LABS: ALBUMIN 3.5 g/dL (3.5-5.0); ALBUMIN/GLOBULIN RATIO 1.2 (0.8-2.0); ANION GAP 15.3 mmol/L (8-16); CALCIUM 8.7 mg/dL (8.4-10.2); CREATININE, SERUM 1.13 mg/dL (0.72-1.25); MAGNESIUM 1.9 MG/DL (1.3-2.1); POTASSIUM 3.3 mmol/L (3.5-5.1)
[2022-11-18 10:48] LABS: CREATINE KINASE MB 1.2 ng/mL (0-5.0); THYROID STIMULATING HORMONE 2.138 uIU/mL (0.350-4.940)
[2022-11-18 11:14] LABS: CLARITY,URINE CLOUDY (CLEAR); COLOR,URINE YELLOW (YELLOW); KETONES,URINE NEGATIVE (NEGATIVE); LEUKOCYTE ESTERASE ,URINE NEGATIVE (NEGATIVE); NITRITE,URINE NEGATIVE (NEGATIVE); PROTEIN,URINE DIPSTICK 2+ (NEGATIVE); URINE UROBILINOGEN 0.2 mg/dL (0.2 - 1)
[2022-11-18] MEDS ORDERED: PROPOFOL IV EMULSION 10 MG/ML 20 ML VIAL ONE (11:19)
[2022-11-18] MEDS: NOREPINEPHRINE 8 MG/D5W 250 ML 250 ML IV SCH ×2 (11:20→19:29)
[2022-11-18] MEDS: VASOPRESSIN 60 UNIT in DEXTROSE 5% 50ML 57 ML IV PRN ×2 (11:20→21:49)
[2022-11-18] MEDS ORDERED: NOREPINEPHRINE 8 MG/D5W 250 ML 250 ML ONE (11:29)
[2022-11-18 11:33] LABS: RBC,URINE >50 /HPF (0-5); WBC,URINE (MAN) 0-5 /HPF (0-5)
[2022-11-18 11:34] LABS: BACTERIA,URINE MODERATE /HPF; EPITHELIAL CELLS,URINE FEW /LPF
[2022-11-18] MEDS ORDERED: MIDAZOLAM HCL 2 MG/2 ML VIAL IV STA (11:38)
[2022-11-18] MEDS ORDERED: FENTANYL CITRATE/PF 100MCG/2 ML INJ ONE (11:43)
[2022-11-18] MEDS ORDERED: SODIUM CHLORIDE 0.9% 1000ML 1,000 ML IV ONE ×2 (11:45→19:45)
[2022-11-18] MEDS ORDERED: AMIODARONE HCL 150 MG/100 ML BAG IV ONE ×2 (11:45→12:37)
[2022-11-18] MEDS ORDERED: AMIODARONE 900MG 500 ML IV SCH ×2 (12:00→18:00)
[2022-11-18] MEDS ORDERED: CALCIUM CHLORIDE 10% 1.36 MEQ/ML 10ML SYR IV ONE (12:37)
[2022-11-18] MEDS ORDERED: AMIODARONE 900MG 900 MG/500 ML BAG IV ONE (12:37)
[2022-11-18] MEDS ORDERED: ATROPINE SULFATE 0.1 MG/ML 10ML SYR ONE (12:37)
[2022-11-18] MEDS ORDERED: SODIUM CHLORIDE 0.9% 1000 ML BAG ONE (12:37)
[2022-11-18] MEDS ORDERED: SODIUM BICARBONATE 8.4% INJ 50 ML SYR ONE (12:37)
[2022-11-18] MEDS ORDERED: GLUCAGON FOR INJ 1 MG VIAL ONE (12:37)
[2022-11-18] MEDS ORDERED: SODIUM CHLORIDE FLUSH 10 ML SYR ONE (12:37)
[2022-11-18] MEDS ORDERED: AMIODARONE HCL INJ 150MG/3ML ONE (12:37)
[2022-11-18] MEDS ORDERED: EPINEPHRINE HCL SYRINGE ONE (12:37)
[2022-11-18] MEDS ORDERED: SODIUM BICARBONATE 8.4% INJ 50 ML SYR IV STA (12:48)
[2022-11-18] MEDS ORDERED: SUCCINYLCHOLINE CHLORIDE 20 MG/ML 10ML VIAL ONE (12:56)
[2022-11-18] MEDS ORDERED: VECURONIUM BROMIDE FOR INJ 20 MG VIAL ONE (12:56)
[2022-11-18] MEDS ORDERED: ETOMIDATE 2 MG/ML 10 ML INJ IV ONE (12:56)
[2022-11-18] MEDS ORDERED: WATER STERILE 10 ML VIAL ONE (12:56)
[2022-11-18 13:11] LABS: AMPHETAMINES SCREEN,URINE NEGATIVE (NEGATIVE); BENZODIAZEPINES SCREEN,URINE NEGATIVE (NEGATIVE); PHENCYCLIDINE SCREEN,URINE NEGATIVE (NEGATIVE)
[2022-11-18] MEDS ORDERED: SODIUM BICARBONATE 8.4% 50 ML VIAL IV STA ×2 (13:27→22:26)
[2022-11-18] MEDS ORDERED: SODIUM BICARBONATE 8.4% INJ 50 ML SYR IV ONE ×2 (13:45→16:45)
[2022-11-18 13:48] LABS: ABG HCO3 13 mmol/L (22-26); ABG PCO2 42 mmHg (35-45); ABG PH 7.11 (7.35-7.45); ABG PO2 225 mmHg (80-105); ABG TCO2 15
[2022-11-18] MEDS: PHENYLEPHRINE 10MG/ML VIAL 40 MG in DEXTROSE 5% 250ML 246 ML IV SCH ×2 (13:54→21:53)
[2022-11-18 13:56] LABS: BASOPHILS # (AUTO) 0.1 (0.0-0.1); BASOPHILS % 0.4 % (0.0-1.0); EOSINOPHILS # (AUTO) 0.1 (0.0-0.4); EOSINOPHILS % 0.6 % (0.0-6.0); HEMATOCRIT 39.4 % (38.2-49.6); HEMOGLOBIN 11.5 g/dL (14.0-18.0); LYMPHOCYTES # (AUTO) 2.1 (1.0-3.2); LYMPHOCYTES % 11.1 % (18.0-39.1); MEAN CORPUSCULAR HEMOGLOBIN 30.4 pg (28-32); MEAN CORPUSCULAR HGB CONC 29.2 g/dL (31-35); MEAN CORPUSCULAR VOLUME 104.2 fL (81-99); MONOCYTES # (AUTO) 0.6 (0.2-0.8); MONOCYTES % 2.9 % (4.4-11.3); NEUTROPHILS # (AUTO) 15.6 (2.1-6.9); NEUTROPHILS % 81.7 % (38.7-80.0); PLATELET COUNT 199 x10e3/uL (140-360); RED BLOOD COUNT 3.78 x10e6/uL (4.3-5.7); RED CELL DISTRIBUTION WIDTH 13.9 % (11.7-14.4)
[2022-11-18] MEDS: SODIUM BICARBONATE 8.4% SYRING 150 ML in DEXTROSE 5% 1,000 ML IV SCH (16:56)
[2022-11-18 17:02] LABS: ABG HCO3 13 mmol/L (22-26); ABG PCO2 34 mmHg (35-45); ABG PH 7.19 (7.35-7.45); ABG PO2 138 mmHg (80-105); ABG TCO2 14
[2022-11-18] MEDS ORDERED: SODIUM BICARBONATE 8.4% SYRING 50 ML ONE ×2 (17:05→22:47)
[2022-11-18 17:35] LABS: ALBUMIN 2.4 g/dL (3.5-5.0); ALBUMIN/GLOBULIN RATIO 1.1 (0.8-2.0); ANION GAP 22.2 mmol/L (8-16); CALCIUM 7.7 mg/dL (8.4-10.2); CREATININE, SERUM 1.83 mg/dL (0.72-1.25); POTASSIUM 3.2 mmol/L (3.5-5.1)
[2022-11-18] MEDS ORDERED: POTASSIUM CHLORIDE 20MEQ/100ML 100 ML IV ONE (18:30)
[2022-11-18 18:43] LABS: CREATINE KINASE MB 4.4 ng/mL (0-5.0)
[2022-11-18 19:36] LABS: ABG PCO2 33 mmHg (35-45); ABG PH 7.25 (7.35-7.45); ABG PO2 160 mmHg (80-105)
[2022-11-18 19:37] LABS: ABG HCO3 14 mmol/L (22-26); ABG TCO2 15
[2022-11-18 19:38] LABS: BASOPHILS # (AUTO) 0.1 (0.0-0.1); BASOPHILS % 0.2 % (0.0-1.0); HEMATOCRIT 47.6 % (38.2-49.6); LYMPHOCYTES % 2.4 % (18.0-39.1); MEAN CORPUSCULAR HEMOGLOBIN 30.9 pg (28-32); MEAN CORPUSCULAR HGB CONC 29.4 g/dL (31-35); MEAN CORPUSCULAR VOLUME 105.1 fL (81-99); MONOCYTES # (AUTO) 2.6 (0.2-0.8); MONOCYTES % 6.3 % (4.4-11.3); NEUTROPHILS # (AUTO) 35.6 (2.1-6.9); NEUTROPHILS % 88.5 % (38.7-80.0); PLATELET COUNT 78 x10e3/uL (140-360); RED BLOOD COUNT 4.53 x10e6/uL (4.3-5.7); RED CELL DISTRIBUTION WIDTH 14.1 % (11.7-14.4)
[2022-11-18 19:51] LABS: ALBUMIN 2.6 g/dL (3.5-5.0); ALBUMIN/GLOBULIN RATIO 1.2 (0.8-2.0); ANION GAP 24.2 mmol/L (8-16); CALCIUM 7.6 mg/dL (8.4-10.2); CREATININE, SERUM 2.02 mg/dL (0.72-1.25); POTASSIUM 3.2 mmol/L (3.5-5.1)
[2022-11-18 19:58] LABS: CREATINE KINASE MB 6.2 ng/mL (0-5.0)
[2022-11-18 21:01] LABS: BAND NEUTROPHILS % (MANUAL) 2 %; LYMPHOCYTES % (MANUAL) 5 % (19-48); MONOCYTES % (MANUAL) 6 % (3.4-9.0); NEUTROPHILS % (MANUAL) 87 % (40-74)
[2022-11-18 21:02] LABS: POIKILOCYTOSIS SLIGHT
[2022-11-18 21:03] LABS: PLATELET ESTIMATE MARKEDLY DECREASED; PLATELET MORPHOLOGY COMMENT NORMAL
[2022-11-18] MEDS ORDERED: CALCIUM CHLORIDE 10% 1.36 MEQ/ML 10ML SYR IV STA (21:22)
[2022-11-18] MEDS ORDERED: FUROSEMIDE INJ 10 MG/ML 4 ML VIAL IV ONE (21:30)
[2022-11-18 23:01] LABS: ABG HCO3 14 mmol/L (22-26); ABG PCO2 33 mmHg (35-45); ABG PH 7.22 (7.35-7.45); ABG PO2 191 mmHg (80-105); ABG TCO2 15
[2022-11-19] VITALS (51 sets, daily range): BP systolic 89–196; BP diastolic 25–135
[2022-11-19] MEDS: PHENYLEPHRINE 10MG/ML VIAL 40 MG in DEXTROSE 5% 250ML 246 ML IV SCH ×3 (00:20→08:50)
[2022-11-19] MEDS: NOREPINEPHRINE 8 MG/D5W 250 ML 250 ML IV SCH ×3 (00:21→09:32)
[2022-11-19] MEDS: SODIUM BICARBONATE 8.4% SYRING 150 ML in DEXTROSE 5% 1,000 ML IV SCH (05:38)
[2022-11-19 06:44] LABS: BASOPHILS # (AUTO) 0.1 (0.0-0.1); BASOPHILS % 0.2 % (0.0-1.0); HEMATOCRIT 45.4 % (38.2-49.6); HEMOGLOBIN 13.5 g/dL (14.0-18.0); LYMPHOCYTES # (AUTO) 0.8 (1.0-3.2); LYMPHOCYTES % 2.1 % (18.0-39.1); MEAN CORPUSCULAR HEMOGLOBIN 30.7 pg (28-32); MEAN CORPUSCULAR HGB CONC 29.7 g/dL (31-35); MEAN CORPUSCULAR VOLUME 103.2 fL (81-99); MONOCYTES # (AUTO) 1.6 (0.2-0.8); NEUTROPHILS # (AUTO) 36.7 (2.1-6.9); NEUTROPHILS % 92.5 % (38.7-80.0); PLATELET COUNT 70 x10e3/uL (140-360); RED CELL DISTRIBUTION WIDTH 13.6 % (11.7-14.4)
[2022-11-19 06:59] LABS: PARTIAL THROMBOPLASTIN TIME 55.4 seconds (23.8-35.5)
[2022-11-19 07:04] LABS: INR 5.17; PROTHROMBIN TIME 47.4 seconds (11.9-14.5)
[2022-11-19] MEDS: DEXMEDETOMIDINE 400MCG/NS100ML 100 ML IV PRN ×2 (07:04→18:27)
[2022-11-19 07:06] LABS: MAGNESIUM 1.8 MG/DL (1.3-2.1)
[2022-11-19 07:09] LABS: ALBUMIN 2.4 g/dL (3.5-5.0); CALCIUM 7.6 mg/dL (8.4-10.2); CREATININE, SERUM 2.69 mg/dL (0.72-1.25)
[2022-11-19 07:16] LABS: CREATINE KINASE MB 11.3 ng/mL (0-5.0)
[2022-11-19 08:09] LABS: HYPOCHROMASIA SLIGHT; MONOCYTES % (MANUAL) 3 % (3.4-9.0); MYELOCYTES % (MANUAL) 1 % (0-0); NEUTROPHILS % (MANUAL) 95 % (40-74); PLATELET MORPHOLOGY COMMENT NORMAL; RBC MORPHOLOGY COMMENT NORMAL
[2022-11-19 08:10] LABS: PLATELET ESTIMATE MODERATELY DECREASED
[2022-11-19 08:11] LABS: LYMPHOCYTES % (MANUAL) 1 % (19-48)
[2022-11-19] MEDS ORDERED: HEPARIN SOD (PORCINE) 5,000 UNIT/ML VIAL SC SCH (09:00)
[2022-11-19] MEDS ORDERED: MIDAZOLAM HCL 2 MG/2 ML VIAL ONE (09:22)
[2022-11-19] MEDS: MIDAZOLAM HCL 2 MG/2 ML VIAL IV PRN (09:36)
[2022-11-19] MEDS: VASOPRESSIN 60 UNIT in DEXTROSE 5% 50ML 57 ML IV PRN (09:39)
[2022-11-19 09:43] LABS: ABG HCO3 17 mmol/L (22-26); ABG PCO2 34 mmHg (35-45); ABG PO2 248 mmHg (80-105); ABG TCO2 18
[2022-11-19] MEDS ORDERED: Vancomycin IV 1 GM in SODIUM CHLORIDE 0.9% 250ML 250 ML IV ONE (11:30)
[2022-11-19 12:22] LABS: ABG PH 7.38 (7.35-7.45)
[2022-11-19 12:26] LABS: ABG HCO3 19 mmol/L (22-26); ABG PCO2 32 mmHg (35-45); ABG PO2 97 mmHg (80-105); ABG TCO2 20
[2022-11-19 15:31] LABS: CREATINE KINASE MB 8.3 ng/mL (0-5.0)
[2022-11-19] MEDS ORDERED: CALCIUM CHLORIDE 13.6 MEQ in SODIUM CHLORIDE 0.9% 100 ML IV ONE (17:45)
[2022-11-19] MEDS ORDERED: FUROSEMIDE INJ 100 MG in SODIUM CHLORIDE 0.9% 90 ML IV SCH (17:45)
[2022-11-19] MEDS ORDERED: FUROSEMIDE INJ 10 MG/ML 4 ML VIAL IV ONE (17:45)
[2022-11-19] MEDS: SODIUM CHLORIDE 0.9% 1000ML 1,000 ML IV SCH (18:22)
[2022-11-19] MEDS: FENTANYL 2000MCG/NS 250 250 ML IV PRN (18:32)
[2022-11-19] MEDS ORDERED: SODIUM BICARBONATE 8.4% SYRING 150 ML in DEXTROSE 5% 1,000 ML IV SCH (20:30)
[2022-11-20] VITALS (76 sets, daily range): BP systolic 83–144; BP diastolic 23–97
[2022-11-20] MEDS: VASOPRESSIN 60 UNIT in DEXTROSE 5% 50ML 57 ML IV PRN ×2 (00:29→13:51)
[2022-11-20] MEDS: NOREPINEPHRINE 8 MG/D5W 250 ML 250 ML IV SCH ×2 (03:25→22:45)
[2022-11-20] MEDS: SODIUM CHLORIDE 0.9% 1000ML 1,000 ML IV SCH (04:55)
[2022-11-20] MEDS: DEXMEDETOMIDINE 400MCG/NS100ML 100 ML IV PRN ×2 (06:34→21:33)
[2022-11-20 06:56] LABS: BASOPHILS # (AUTO) 0.1 (0.0-0.1); BASOPHILS % 0.2 % (0.0-1.0); HEMATOCRIT 40.2 % (38.2-49.6); HEMOGLOBIN 13.3 g/dL (14.0-18.0); LYMPHOCYTES # (AUTO) 0.6 (1.0-3.2); LYMPHOCYTES % 2.1 % (18.0-39.1); MEAN CORPUSCULAR HEMOGLOBIN 30.5 pg (28-32); MEAN CORPUSCULAR HGB CONC 33.1 g/dL (31-35); MEAN CORPUSCULAR VOLUME 92.2 fL (81-99); MONOCYTES # (AUTO) 1.4 (0.2-0.8); MONOCYTES % 5.3 % (4.4-11.3); NEUTROPHILS # (AUTO) 24.2 (2.1-6.9); PLATELET COUNT 91 x10e3/uL (140-360); RED BLOOD COUNT 4.36 x10e6/uL (4.3-5.7); RED CELL DISTRIBUTION WIDTH 13.8 % (11.7-14.4)
[2022-11-20 07:22] LABS: ALBUMIN 2.7 g/dL (3.5-5.0); ALBUMIN/GLOBULIN RATIO 1.2 (0.8-2.0); ANION GAP 25.6 mmol/L (8-16); CALCIUM 7.2 mg/dL (8.4-10.2); CREATININE, SERUM 4.24 mg/dL (0.72-1.25); POTASSIUM 4.6 mmol/L (3.5-5.1)
[2022-11-20 08:14] LABS: ABG HCO3 17 mmol/L (22-26); ABG PCO2 32 mmHg (35-45); ABG PH 7.35 (7.35-7.45); ABG PO2 118 mmHg (80-105); ABG TCO2 18
[2022-11-20 08:25] LABS: PARTIAL THROMBOPLASTIN TIME 52.7 seconds (23.8-35.5)
[2022-11-20 08:32] LABS: PROTHROMBIN TIME 44.4 seconds (11.9-14.5)
[2022-11-20 08:33] LABS: INR 4.75
[2022-11-20 08:52] LABS: LYMPHOCYTES % (MANUAL) 3 % (19-48); MONOCYTES % (MANUAL) 5 % (3.4-9.0); NEUTROPHILS % (MANUAL) 92 % (40-74); NUCLEATED RED BLOOD CELLS 1; PLATELET ESTIMATE MODERATELY DECREASED; PLATELET MORPHOLOGY COMMENT NORMAL; RBC MORPHOLOGY COMMENT NORMAL
[2022-11-20] MEDS: FENTANYL 2000MCG/NS 250 250 ML IV PRN ×2 (09:40→22:42)
[2022-11-20] MEDS: PHENYLEPHRINE 10MG/ML VIAL 40 MG in DEXTROSE 5% 250ML 246 ML IV SCH (11:03)
[2022-11-20] MEDS: MIDAZOLAM HCL 2 MG/2 ML VIAL IV PRN (15:38)
[2022-11-20] MEDS ORDERED: HEPARIN SOD (PORCINE) 1000 UNIT/ML SDV ONE (18:37)
[2022-11-20] MEDS ORDERED: SODIUM CHLORIDE 0.9% 1000ML 2,000 ML ONE (18:38)
[2022-11-20] MEDS: HYDROCORTISONE SOD SUCCINATE 100 MG VIAL IV SCH ×2 (18:58→23:18)
[2022-11-20] MEDS ORDERED: DIGOXIN INJ 0.25 MG/ML 2 ML AMP IV ONE (20:45)
[2022-11-21] VITALS (97 sets, daily range): BP systolic 96–178; BP diastolic 31–79
[2022-11-21] MEDS: VASOPRESSIN 60 UNIT in DEXTROSE 5% 50ML 57 ML IV PRN ×2 (04:48→18:22)
[2022-11-21] MEDS: HYDROCORTISONE SOD SUCCINATE 100 MG VIAL IV SCH ×3 (05:32→21:35)
[2022-11-21 06:37] LABS: BASOPHILS % 0.1 % (0.0-1.0); HEMATOCRIT 38.8 % (38.2-49.6); LYMPHOCYTES # (AUTO) 0.7 (1.0-3.2); LYMPHOCYTES % 2.8 % (18.0-39.1); MEAN CORPUSCULAR HEMOGLOBIN 30.4 pg (28-32); MEAN CORPUSCULAR HGB CONC 30.9 g/dL (31-35); MEAN CORPUSCULAR VOLUME 98.2 fL (81-99); MONOCYTES # (AUTO) 0.9 (0.2-0.8); MONOCYTES % 3.8 % (4.4-11.3); NEUTROPHILS # (AUTO) 22.9 (2.1-6.9); NEUTROPHILS % 92.5 % (38.7-80.0); PLATELET COUNT 95 x10e3/uL (140-360); RED BLOOD COUNT 3.95 x10e6/uL (4.3-5.7); RED CELL DISTRIBUTION WIDTH 13.3 % (11.7-14.4)
[2022-11-21 07:00] LABS: ALBUMIN 2.8 g/dL (3.5-5.0); ALBUMIN/GLOBULIN RATIO 1.3 (0.8-2.0); ANION GAP 23.8 mmol/L (8-16); CREATININE, SERUM 5.06 mg/dL (0.72-1.25); POTASSIUM 4.8 mmol/L (3.5-5.1)
[2022-11-21 07:25] LABS: BAND NEUTROPHILS % (MANUAL) 1 %; LYMPHOCYTES % (MANUAL) 4 % (19-48); MONOCYTES % (MANUAL) 3 % (3.4-9.0); NEUTROPHILS % (MANUAL) 92 % (40-74); PLATELET ESTIMATE ADEQUATE; PLATELET MORPHOLOGY COMMENT NORMAL; RBC MORPHOLOGY COMMENT NORMAL
[2022-11-21 08:20] LABS: INR 3.72; PROTHROMBIN TIME 36.8 seconds (11.9-14.5)
[2022-11-21 08:21] LABS: PARTIAL THROMBOPLASTIN TIME 40.2 seconds (23.8-35.5)
[2022-11-21] MEDS: DEXMEDETOMIDINE 400MCG/NS100ML 100 ML IV PRN (08:52)
[2022-11-21] MEDS: NOREPINEPHRINE 8 MG/D5W 250 ML 250 ML IV SCH (08:53)
[2022-11-21 08:58] LABS: ABG HCO3 21 mmol/L (22-26); ABG PCO2 37 mmHg (35-45); ABG PH 7.35 (7.35-7.45); ABG PO2 179 mmHg (80-105); ABG TCO2 22
[2022-11-21] MEDS: FENTANYL 2000MCG/NS 250 250 ML IV PRN (12:40)
[2022-11-21] MEDS ORDERED: SODIUM CHLORIDE 0.9% 1000ML 2,000 ML IV PRN (13:45)
[2022-11-21] MEDS ORDERED: HEPARIN SOD (PORCINE) 1000 UNIT/ML SDV IV PRN (13:45)
[2022-11-21 15:39] LABS: ABG HCO3 19 mmol/L (22-26); ABG PCO2 34 mmHg (35-45); ABG PH 7.35 (7.35-7.45); ABG PO2 131 mmHg (80-105); ABG TCO2 20
[2022-11-22] VITALS (96 sets, daily range): BP systolic 79–151; BP diastolic 26–55
[2022-11-22] MEDS: FENTANYL 2000MCG/NS 250 250 ML IV PRN (03:31)
[2022-11-22] MEDS: HYDROCORTISONE SOD SUCCINATE 100 MG VIAL IV SCH ×3 (06:20→21:46)
[2022-11-22 06:45] LABS: BASOPHILS % 0.1 % (0.0-1.0); HEMATOCRIT 34.8 % (38.2-49.6); HEMOGLOBIN 11.6 g/dL (14.0-18.0); LYMPHOCYTES # (AUTO) 0.6 (1.0-3.2); LYMPHOCYTES % 3.7 % (18.0-39.1); MEAN CORPUSCULAR HEMOGLOBIN 30.4 pg (28-32); MEAN CORPUSCULAR HGB CONC 33.3 g/dL (31-35); MEAN CORPUSCULAR VOLUME 91.3 fL (81-99); MONOCYTES # (AUTO) 0.8 (0.2-0.8); MONOCYTES % 4.9 % (4.4-11.3); NEUTROPHILS # (AUTO) 14.6 (2.1-6.9); NEUTROPHILS % 90.6 % (38.7-80.0); PLATELET COUNT 95 x10e3/uL (140-360); RED BLOOD COUNT 3.81 x10e6/uL (4.3-5.7); RED CELL DISTRIBUTION WIDTH 13.7 % (11.7-14.4)
[2022-11-22 07:07] LABS: ALBUMIN 2.5 g/dL (3.5-5.0); ALBUMIN/GLOBULIN RATIO 1.3 (0.8-2.0); ANION GAP 23.1 mmol/L (8-16); CALCIUM 7.3 mg/dL (8.4-10.2); CREATININE, SERUM 5.26 mg/dL (0.72-1.25); POTASSIUM 5.1 mmol/L (3.5-5.1)
[2022-11-22 07:50] LABS: ABG HCO3 20 mmol/L (22-26); ABG PCO2 32 mmHg (35-45); ABG PO2 106 mmHg (80-105); ABG TCO2 21
[2022-11-22] MEDS: VASOPRESSIN 60 UNIT in DEXTROSE 5% 50ML 57 ML IV PRN (12:14)
[2022-11-22 13:28] LABS: INR 3.5; PROTHROMBIN TIME 35.1 seconds (11.9-14.5)
[2022-11-22 13:29] LABS: PARTIAL THROMBOPLASTIN TIME 37.1 seconds (23.8-35.5)
[2022-11-22] MEDS: NOREPINEPHRINE 8 MG/D5W 250 ML 250 ML IV SCH (14:15)
[2022-11-22] MEDS: DEXMEDETOMIDINE 400MCG/NS100ML 100 ML IV PRN (18:07)
[2022-11-22] MEDS: ACETAMINOPHEN 325 MG TAB PO PRN (18:52)
[2022-11-23] VITALS (96 sets, daily range): BP systolic 78–155; BP diastolic 25–53
[2022-11-23] MEDS: VASOPRESSIN 60 UNIT in DEXTROSE 5% 50ML 57 ML IV PRN ×2 (02:22→17:17)
[2022-11-23] MEDS: HYDROCORTISONE SOD SUCCINATE 100 MG VIAL IV SCH (05:58)
[2022-11-23 06:42] LABS: BASOPHILS % 0.1 % (0.0-1.0); HEMATOCRIT 39.4 % (38.2-49.6); HEMOGLOBIN 12.4 g/dL (14.0-18.0); LYMPHOCYTES # (AUTO) 0.4 (1.0-3.2); LYMPHOCYTES % 1.8 % (18.0-39.1); MEAN CORPUSCULAR HEMOGLOBIN 30.3 pg (28-32); MEAN CORPUSCULAR HGB CONC 31.5 g/dL (31-35); MEAN CORPUSCULAR VOLUME 96.3 fL (81-99); MONOCYTES # (AUTO) 1.1 (0.2-0.8); MONOCYTES % 5.7 % (4.4-11.3); NEUTROPHILS # (AUTO) 18.1 (2.1-6.9); NEUTROPHILS % 91.6 % (38.7-80.0); PLATELET COUNT 108 x10e3/uL (140-360); RED BLOOD COUNT 4.09 x10e6/uL (4.3-5.7); RED CELL DISTRIBUTION WIDTH 13.5 % (11.7-14.4)
[2022-11-23 07:41] LABS: ALBUMIN 2.3 g/dL (3.5-5.0); ANION GAP 20.8 mmol/L (8-16); CALCIUM 7.4 mg/dL (8.4-10.2); CREATININE, SERUM 5.05 mg/dL (0.72-1.25); POTASSIUM 4.8 mmol/L (3.5-5.1)
[2022-11-23 07:43] LABS: INR 3.28; PROTHROMBIN TIME 33.4 seconds (11.9-14.5)
[2022-11-23] MEDS: ACETAMINOPHEN 325 MG TAB PO PRN (08:12)
[2022-11-23 08:41] LABS: ABG HCO3 23 mmol/L (22-26); ABG PCO2 38 mmHg (35-45); ABG PH 7.39 (7.35-7.45); ABG PO2 109 mmHg (80-105); ABG TCO2 24
[2022-11-23 09:39] LABS: ABG HCO3 22 mmol/L (22-26); ABG PCO2 39 mmHg (35-45); ABG PH 7.37 (7.35-7.45); ABG PO2 103 mmHg (80-105); ABG TCO2 24
[2022-11-23] MEDS: NOREPINEPHRINE 8 MG/D5W 250 ML 250 ML IV SCH (13:48)
[2022-11-23] MEDS: BUMETANIDE INJ 0.25MG/ML 4ML VIAL IV SCH (15:59)
[2022-11-24] VITALS (48 sets, daily range): BP systolic 107–152; BP diastolic 26–36
[2022-11-24] MEDS: VASOPRESSIN 60 UNIT in DEXTROSE 5% 50ML 57 ML IV PRN ×2 (03:05→20:34)
[2022-11-24] MEDS: DEXMEDETOMIDINE 400MCG/NS100ML 100 ML IV PRN (03:06)
[2022-11-24 06:58] LABS: BASOPHILS # (AUTO) 0.1 (0.0-0.1); BASOPHILS % 0.2 % (0.0-1.0); HEMATOCRIT 39.4 % (38.2-49.6); HEMOGLOBIN 13.3 g/dL (14.0-18.0); LYMPHOCYTES # (AUTO) 0.6 (1.0-3.2); MEAN CORPUSCULAR HEMOGLOBIN 30.9 pg (28-32); MEAN CORPUSCULAR HGB CONC 33.8 g/dL (31-35); MEAN CORPUSCULAR VOLUME 91.4 fL (81-99); MONOCYTES # (AUTO) 1.7 (0.2-0.8); MONOCYTES % 8.3 % (4.4-11.3); NEUTROPHILS # (AUTO) 18.1 (2.1-6.9); NEUTROPHILS % 86.6 % (38.7-80.0); PLATELET COUNT 129 x10e3/uL (140-360); RED BLOOD COUNT 4.31 x10e6/uL (4.3-5.7)
[2022-11-24 07:20] LABS: INR 3.03; PARTIAL THROMBOPLASTIN TIME 34.3 seconds (23.8-35.5); PROTHROMBIN TIME 31.4 seconds (11.9-14.5)
[2022-11-24 07:29] LABS: ALBUMIN 2.4 g/dL (3.5-5.0); ALBUMIN/GLOBULIN RATIO 1.1 (0.8-2.0); CALCIUM 7.2 mg/dL (8.4-10.2); CREATININE, SERUM 6.91 mg/dL (0.72-1.25)
[2022-11-24] MEDS: BUMETANIDE INJ 0.25MG/ML 4ML VIAL IV SCH (17:00)
[2022-11-24] MEDS: NOREPINEPHRINE 8 MG/D5W 250 ML 250 ML IV SCH (20:20)
[2022-11-25] VITALS (75 sets, daily range): BP systolic 77–153; BP diastolic 22–99
[2022-11-25 06:24] LABS: BASOPHILS # (AUTO) 0.1 (0.0-0.1); BASOPHILS % 0.3 % (0.0-1.0); HEMATOCRIT 39.8 % (38.2-49.6); HEMOGLOBIN 13.5 g/dL (14.0-18.0); LYMPHOCYTES # (AUTO) 0.6 (1.0-3.2); LYMPHOCYTES % 2.6 % (18.0-39.1); MEAN CORPUSCULAR HEMOGLOBIN 30.8 pg (28-32); MEAN CORPUSCULAR HGB CONC 33.9 g/dL (31-35); MEAN CORPUSCULAR VOLUME 90.9 fL (81-99); MONOCYTES # (AUTO) 1.5 (0.2-0.8); MONOCYTES % 6.2 % (4.4-11.3); NEUTROPHILS # (AUTO) 20.6 (2.1-6.9); NEUTROPHILS % 88.8 % (38.7-80.0); PLATELET COUNT 137 x10e3/uL (140-360); RED BLOOD COUNT 4.38 x10e6/uL (4.3-5.7); RED CELL DISTRIBUTION WIDTH 15.7 % (11.7-14.4)
[2022-11-25 06:48] LABS: ALBUMIN 2.4 g/dL (3.5-5.0); ANION GAP 22.5 mmol/L (8-16); CALCIUM 7.5 mg/dL (8.4-10.2); CREATININE, SERUM 5.45 mg/dL (0.72-1.25); POTASSIUM 4.5 mmol/L (3.5-5.1)
[2022-11-25 07:32] LABS: LYMPHOCYTES % (MANUAL) 6 % (19-48); MONOCYTES % (MANUAL) 4 % (3.4-9.0); NEUTROPHILS % (MANUAL) 90 % (40-74); PLATELET ESTIMATE SLIGHTLY DECREASED; PLATELET MORPHOLOGY COMMENT NORMAL; RBC MORPHOLOGY COMMENT NORMAL
[2022-11-25] MEDS: VASOPRESSIN 60 UNIT in DEXTROSE 5% 50ML 57 ML IV PRN ×2 (08:13→21:28)
[2022-11-25 09:13] LABS: ABG HCO3 25 mmol/L (22-26); ABG PCO2 38 mmHg (35-45); ABG PH 7.43 (7.35-7.45); ABG PO2 143 mmHg (80-105)
[2022-11-25 09:14] LABS: ABG TCO2 27
[2022-11-25] MEDS: BUMETANIDE INJ 0.25MG/ML 4ML VIAL IV SCH (18:06)
[2022-11-25] MEDS: NOREPINEPHRINE 8 MG/D5W 250 ML 250 ML IV SCH (18:10)
[2022-11-25] MEDS ORDERED: DEXMEDETOMIDINE 100 ML IV PRN (18:15)
[2022-11-25] MEDS: MIDODRINE HCL 5 MG TABLET PO SCH (22:01)
[2022-11-26] VITALS (92 sets, daily range): BP systolic 67–156; BP diastolic 25–109
[2022-11-26] MEDS: MIDODRINE HCL 5 MG TABLET PO SCH ×3 (05:27→21:46)
[2022-11-26 06:49] LABS: BASOPHILS # (AUTO) 0.1 (0.0-0.1); BASOPHILS % 0.3 % (0.0-1.0); HEMATOCRIT 44.1 % (38.2-49.6); HEMOGLOBIN 13.8 g/dL (14.0-18.0); LYMPHOCYTES # (AUTO) 0.7 (1.0-3.2); LYMPHOCYTES % 2.8 % (18.0-39.1); MEAN CORPUSCULAR HEMOGLOBIN 30.7 pg (28-32); MEAN CORPUSCULAR HGB CONC 31.3 g/dL (31-35); MEAN CORPUSCULAR VOLUME 98.2 fL (81-99); MONOCYTES # (AUTO) 1.4 (0.2-0.8); MONOCYTES % 5.7 % (4.4-11.3); NEUTROPHILS # (AUTO) 21.3 (2.1-6.9); NEUTROPHILS % 89.1 % (38.7-80.0); PLATELET COUNT 130 x10e3/uL (140-360); RED BLOOD COUNT 4.49 x10e6/uL (4.3-5.7); RED CELL DISTRIBUTION WIDTH 17.4 % (11.7-14.4)
[2022-11-26 07:20] LABS: INR 2.18; PROTHROMBIN TIME 24.4 seconds (11.9-14.5)
[2022-11-26 07:21] LABS: PARTIAL THROMBOPLASTIN TIME 32.6 seconds (23.8-35.5)
[2022-11-26 07:25] LABS: ALBUMIN 2.5 g/dL (3.5-5.0); ALBUMIN/GLOBULIN RATIO 0.9 (0.8-2.0); ANION GAP 23.9 mmol/L (8-16); CALCIUM 7.5 mg/dL (8.4-10.2); CREATININE, SERUM 7.05 mg/dL (0.72-1.25); POTASSIUM 4.9 mmol/L (3.5-5.1)
[2022-11-26 08:05] LABS: LYMPHOCYTES % (MANUAL) 4 % (19-48); MONOCYTES % (MANUAL) 7 % (3.4-9.0); NEUTROPHILS % (MANUAL) 89 % (40-74); NUCLEATED RED BLOOD CELLS 1
[2022-11-26 08:06] LABS: ANISOCYTOSIS SLIGHT; HYPOCHROMASIA SLIGHT; PLATELET ESTIMATE SLIGHTLY DECREASED; PLATELET MORPHOLOGY COMMENT NORMAL; RBC MORPHOLOGY COMMENT NORMAL
[2022-11-26] MEDS: VASOPRESSIN 60 UNIT in DEXTROSE 5% 50ML 57 ML IV PRN (10:37)
[2022-11-26] MEDS ORDERED: AMIODARONE HCL 150MG 100 ML IV ONE ×2 (13:15→13:45)
[2022-11-26] MEDS ORDERED: AMIODARONE HCL 360MG 200 ML IV SCH ×2 (13:15→18:00)
[2022-11-26] MEDS ORDERED: AMIODARONE 900MG 500 ML IV SCH (13:30)
[2022-11-26] MEDS ORDERED: AMIODARONE HCL 150 MG in DEXTROSE 5% 100ML 100 ML IV ONE (13:30)
[2022-11-26] MEDS ORDERED: AMIODARONE HCL 100 ML IV ONE (14:00)
[2022-11-26] MEDS: BUMETANIDE INJ 0.25MG/ML 4ML VIAL IV SCH (16:09)
[2022-11-27] VITALS (79 sets, daily range): BP systolic 78–149; BP diastolic 13–77
[2022-11-27] MEDS: VASOPRESSIN 60 UNIT in DEXTROSE 5% 50ML 57 ML IV PRN ×2 (01:33→11:43)
[2022-11-27] MEDS: MIDODRINE HCL 5 MG TABLET PO SCH ×3 (05:37→20:56)
[2022-11-27 06:46] LABS: BASOPHILS # (AUTO) 0.1 (0.0-0.1); BASOPHILS % 0.3 % (0.0-1.0); HEMATOCRIT 42.1 % (38.2-49.6); HEMOGLOBIN 13.3 g/dL (14.0-18.0); LYMPHOCYTES # (AUTO) 0.2 (1.0-3.2); LYMPHOCYTES % 0.6 % (18.0-39.1); MEAN CORPUSCULAR HEMOGLOBIN 31.2 pg (28-32); MEAN CORPUSCULAR HGB CONC 31.6 g/dL (31-35); MEAN CORPUSCULAR VOLUME 98.8 fL (81-99); MONOCYTES # (AUTO) 1.8 (0.2-0.8); MONOCYTES % 5.7 % (4.4-11.3); NEUTROPHILS # (AUTO) 28.9 (2.1-6.9); NEUTROPHILS % 90.5 % (38.7-80.0); PLATELET COUNT 107 x10e3/uL (140-360); RED BLOOD COUNT 4.26 x10e6/uL (4.3-5.7); RED CELL DISTRIBUTION WIDTH 19.3 % (11.7-14.4)
[2022-11-27 07:17] LABS: ALBUMIN 2.4 g/dL (3.5-5.0); ALBUMIN/GLOBULIN RATIO 0.9 (0.8-2.0); ANION GAP 27.2 mmol/L (8-16); CALCIUM 7.4 mg/dL (8.4-10.2); CREATININE, SERUM 8.35 mg/dL (0.72-1.25); POTASSIUM 5.2 mmol/L (3.5-5.1)
[2022-11-27 08:49] LABS: MONOCYTES % (MANUAL) 3 % (3.4-9.0); NEUTROPHILS % (MANUAL) 97 % (40-74); NUCLEATED RED BLOOD CELLS 4; PLATELET ESTIMATE SLIGHTLY DECREASED
[2022-11-27 08:50] LABS: PLATELET MORPHOLOGY COMMENT NORMAL; RBC MORPHOLOGY COMMENT NORMAL
[2022-11-27] MEDS: DEXMEDETOMIDINE 400MCG/NS100ML 100 ML IV PRN (15:20)
[2022-11-27] MEDS: NOREPINEPHRINE 8 MG/D5W 250 ML 250 ML IV SCH (16:35)
[2022-11-27] MEDS: BUMETANIDE INJ 0.25MG/ML 4ML VIAL IV SCH (16:48)
[2022-11-27 17:55] LABS: CREATININE,URINE RANDOM 23.93 mg/dL (63-166)
[2022-11-27 18:10] LABS: TOTAL PROTEIN 24HR, URINE 243.8 mg/24hr (50-100); TOTAL PROTEIN, URINE 609.7 mg/dL (1-14)
[2022-11-27] MEDS: Morphine 2mg Syringe 2 MG/ML SYR IV PRN ×2 (19:30→23:35)
[2022-11-28] VITALS (20 sets, daily range): BP systolic 61–123; BP diastolic 28–37
[2022-11-28] MEDS: Morphine 2mg Syringe 2 MG/ML SYR IV PRN ×7 (04:24→23:07)
[2022-11-28] MEDS: MIDODRINE HCL 5 MG TABLET PO SCH ×2 (05:24→13:42)
[2022-11-28] MEDS: DEXMEDETOMIDINE 400MCG/NS100ML 100 ML IV PRN ×2 (07:30→18:15)
[2022-11-28] MEDS: LORAZEPAM INJ 2 MG/ML VIAL IV PRN ×5 (12:41→22:06)
[2022-11-28] MEDS ORDERED: SCOPOLAMINE 1 MG PATCH TOP ONE (15:30)
[2022-11-29] VITALS (17 sets, daily range): BP systolic 68–119; BP diastolic 30–45
[2022-11-29] MEDS: LORAZEPAM INJ 2 MG/ML VIAL IV PRN ×7 (00:11→13:22)
[2022-11-29] MEDS: Morphine 2mg Syringe 2 MG/ML SYR IV PRN ×6 (01:09→12:28)
[2022-11-29] MEDS: DEXMEDETOMIDINE 400MCG/NS100ML 100 ML IV PRN (06:16)
[2022-11-29] MEDS ORDERED: SCOPOLAMINE 1 MG PATCH TOP ONE (13:00)
== END 2022-11-29 15:30 | disposition expired | DRG 207 ==
LOC: ER 09:59 → ERHOLD 11:57 → ICU 15:08
PROVIDERS: ADMIT Family Medicine; ATTEND Family Medicine
PROC: 0BH17EZ Insertion of Endotracheal Airway into Trachea, Via Natural or Artificial Opening (ICD-10-PCS; principal; 2022-11-18)
PROC: 5A1955Z Respiratory Ventilation, Greater than 96 Consecutive Hours (ICD-10-PCS; 2022-11-18)
PROC: 5A12012 Performance of Cardiac Output, Single, Manual (ICD-10-PCS; 2022-11-18)
PROC: 06HY33Z Insertion of Infusion Device into Lower Vein, Percutaneous Approach (ICD-10-PCS; 2022-11-18)
PROC: 03HB33Z Insertion of Infusion Device into Right Radial Artery, Percutaneous Approach (ICD-10-PCS; 2022-11-18)
PROC: 02HV33Z Insertion of Infusion Device into Superior Vena Cava, Percutaneous Approach (ICD-10-PCS; 2022-11-20)
PROC: 05HN33Z Insertion of Infusion Device into Left Internal Jugular Vein, Percutaneous Approach (ICD-10-PCS; 2022-11-20)
PROC: B544ZZA Ultrasonography of Left Jugular Veins, Guidance (ICD-10-PCS; 2022-11-20)
PROC: 5A1D70Z Performance of Urinary Filtration, Intermittent, Less than 6 Hours Per Day (ICD-10-PCS; 2022-11-20)
PROC: 30233K1 Transfusion of Nonautologous Frozen Plasma into Peripheral Vein, Percutaneous Approach (ICD-10-PCS; 2022-11-20)
PROC: 0BH17EZ Insertion of Endotracheal Airway into Trachea, Via Natural or Artificial Opening (ICD-10-PCS; 2022-11-27)
PROC: 0BP1XDZ Removal of Intraluminal Device from Trachea, External Approach (ICD-10-PCS; 2022-11-28)
DX: J96.01 Acute respiratory failure with hypoxia (principal); D65 Disseminated intravascular coagulation [defibrination syndrome]; I21.A1 Myocardial infarction type 2; R65.11 Systemic inflammatory response syndrome (SIRS) of non-infectious origin with acute organ dysfunction; N17.0 Acute kidney failure with tubular necrosis; K72.00 Acute and subacute hepatic failure without coma; N18.6 End stage renal disease; G82.50 Quadriplegia, unspecified; R57.9 Shock, unspecified; C78.7 Secondary malignant neoplasm of liver and intrahepatic bile duct; C7A.8 Other malignant neuroendocrine tumors; I31.39 Other pericardial effusion (noninflammatory); N17.9 Acute kidney failure, unspecified; E87.20 Acidosis, unspecified; J81.1 Chronic pulmonary edema; I50.30 Unspecified diastolic (congestive) heart failure; D68.9 Coagulation defect, unspecified; R18.8 Other ascites; G93.40 Encephalopathy, unspecified; C79.31 Secondary malignant neoplasm of brain; I47.1 Supraventricular tachycardia; I48.92 Unspecified atrial flutter; I46.9 Cardiac arrest, cause unspecified; E83.51 Hypocalcemia; I48.91 Unspecified atrial fibrillation; R50.9 Fever, unspecified; D72.829 Elevated white blood cell count, unspecified; E87.6 Hypokalemia; K21.00 Gastro-esophageal reflux disease with esophagitis, without bleeding; F41.9 Anxiety disorder, unspecified; F32.A Depression, unspecified; K58.9 Irritable bowel syndrome, unspecified; I08.3 Combined rheumatic disorders of mitral, aortic and tricuspid valves; I27.20 Pulmonary hypertension, unspecified; Z90.49 Acquired absence of other specified parts of digestive tract; Z90.89 Acquired absence of other organs; Z87.442 Personal history of urinary calculi; Z98.890 Other specified postprocedural states; Z79.2 Long term (current) use of antibiotics; Z79.891 Long term (current) use of opiate analgesic; Z79.899 Other long term (current) drug therapy; Z66 Do not resuscitate; Z51.5 Encounter for palliative care
CPT/HCPCS: 31500; 36415; 36569; 36600; 51700; 70450; 70551; 71045; 71260; 72141; 74018; 74177; 76700; 80053; 80061; 80307; 81001; 81050; 82550; 82553; 82570; 82805; 83605; 83690; 83735; 83880; 84100; 84156; 84443; 84484; 84550; 85025; 85379; 85610; 85730; 86021; 86039; 86160; 86225; 86704; 86705; 86706; 86900; 87040; 87086; 90962; 92950; 93005; 93306; 93970; 94003; 94799; 95819; 99252; 99285; J0171; J0330; J1160; J1610; J1644; J1720; J1940; J2060; J2250; J2270; J2370; J2543; J3010; J3370; J3411; J3480; J7030; J7050; J7070; P9017